=== PATIENT | male | born 1980 | race African-American/Black ===

== ENCOUNTER 2017-07-16 10:37 | Emergency (ER) | payer OTHER ==
[2017-07-16 10:48] VITALS: BP 107/65; PULSE 50; BMI 27.3
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
== END 2017-07-16 12:09 | disposition home or self-care (01) ==
LOC: JERFT 10:37 → JER 10:37
DX: T59.811A Toxic effect of smoke, accidental (unintentional), initial encounter (principal); J70.5 Respiratory conditions due to smoke inhalation; Y92.811 Bus as the place of occurrence of the external cause
CPT/HCPCS: 99281-25

== ENCOUNTER 2018-11-21 08:15 | Emergency (ER) | payer OTHER ==
--- NOTE | 2018-11-21 08:31 | PDOC ---
Attending Attestation - Resident Resident Name: Kirk Banks - HPI HPI: 11/21/18 08:53 Pt presents to the ED after sent in from [place] for seizure. Patient is non verbal at baseline, with bilateral contractions of his legs and arms. He has a known history of seizure disorder. Patient is somewhat more lethargic than his baseline as per aide who is with the patient. 11/21/18 08:55 - Physicial Exam PE: 11/21/18 08:55 Agree with resident exam. Patient appears to be sleeping, but withdraws to pain. + scattered rhonchi bilaterally. 11/21/18 08:56 - Medical Decision Making 11/21/18 08:57 Pt presents to the ED for witnessed seizure without history of trauma. Known history of seizure disorder. Will check depakote level, labs and electrolytes, reassess. Patient had slightly low rectal temp, but temp was taken immediately after coming in from [facility]. No other indications of sepsis. Will check labs and reassess temperature.
[2018-11-21] MEDS ORDERED: ACETAMINOPHEN 1000 MG/100 ML VIAL (NON FORMULARY) IVPB ONE (08:36)
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
[2018-11-21 08:50] VITALS: BP 137/97; PULSE 67; BMI 28.3
[2018-11-21] MEDS ORDERED: ACETAMINOPHEN INJECTION 100 ML IVPB ONE (09:00)
[2018-11-21 09:31] LABS: BASO % 0.3 % (0-2.0); EOS % 0.3 % (0-4.5); HEMATOCRIT 44.6 % (35.4-49); HEMOGLOBIN 15.3 GM/dL (11.7-16.9); LYMPH % 15.8 % (8-40); MCH 29.2 pg (25.7-33.7); MCHC 34.3 g/dl (32.0-35.9); MEAN CELL VOLUME 85.3 fl (80-96); MEAN PLT VOLUME 8.5 fl (7.5-11.1); MONO % 5.6 % (3.8-10.2); PLATELET COUNT 217 K/MM3 (134-434); RBC 5.24 M/mm3 (4.00-5.60); RDW 14.3 % (11.9-15.9); VENOUS PH 7.3 (7.32-7.42); WHITE BLOOD COUNT 7.1 K/mm3 (4.0-10.0)
[2018-11-21 09:32] LABS: VENOUS PO2 71.2 mmHg (28-48)
[2018-11-21 09:38] LABS: URINE APPEARANCE CLEAR; URINE BILIRUBIN NEGATIVE (<2.0 mg/dL); URINE COLOR YELLOW; URINE GLUCOSE (UA) NEGATIVE (NEGATIVE); URINE KETONE NEGATIVE (NEGATIVE); URINE LEUK ESTERASE NEGATIVE (NEGATIVE); URINE NITRITE NEGATIVE (NEGATIVE); URINE PROTEIN NEGATIVE (NEGATIVE); URINE UROBILINOGEN NEGATIVE mg/dL (0.2-1.0)
[2018-11-21 09:54] LABS: INR 0.97 (0.83-1.09); PROTHROMBIN TIME (PATIENT) 11.4 SEC (9.7-13.0)
[2018-11-21 09:57] LABS: ACTIVATED PTT 28.3 SECONDS (25.2-36.5)
[2018-11-21 10:00] LABS: ALK PHOS 87 U/L (45-117); ANION GAP 8 MMOL/L (8-16); BILIRUBIN,TOTAL 0.2 mg/dL (0.2-1); BLOOD UREA NITROGEN 11 mg/dL (7-18); CALCIUM 9.7 mg/dL (8.5-10.1); CHLORIDE 100 mmol/L (98-107); CO2 29 mmol/L (21-32); CREATININE 0.9 mg/dL (0.55-1.3); GLUCOSE,RANDOM 85 mg/dL (74-106); POTASSIUM 4.8 mmol/L (3.5-5.1); SGOT/AST 42 U/L (15-37); SGPT/ALT 53 U/L (13-61); SODIUM 137 mmol/L (136-145); TOT PROT 8.2 g/dl (6.4-8.2)
[2018-11-21] MEDS ORDERED: SODIUM CHLORIDE 0.9% 1000 ML INFUS.BAG IV ONE (10:52)
[2018-11-21 11:08] VITALS: TEMP 97.4
[2018-11-21] MEDS ORDERED: VALPROATE SODIUM 500 MG/5 ML VIAL IVPB ONE (12:31)
[2018-11-21] MEDS ORDERED: VALPROATE SODIUM 500 MG/5 ML VIAL ONE (13:21)
--- NOTE | 2018-11-21 14:36 | EKG ---
Test Reason : Blood Pressure : / mmHG Vent. Rate : 068 BPM Atrial Rate : 068 BPM P-R Int : 110 ms QRS Dur : 092 ms QT Int : 368 ms P-R-T Axes : 047 -21 029 degrees QTc Int : 391 ms SINUS RHYTHM WITH SINUS ARRHYTHMIA WITH SHORT ND INCOMPLETE RIGHT BUNDLE BRANCH BLOCK BORDERLINE ECG NO PREVIOUS ECGS AVAILABLE Confirmed by BECKY JOLLY MD ([id number]) on 11/21/2018 2:35:47 PM Referred By: Confirmed By:BECKY JOLLY MD
== END 2018-11-21 15:06 | disposition home or self-care (01) ==
LOC: JER 08:15
PROC: 3E033NZ Introduction of Analgesics, Hypnotics, Sedatives into Peripheral Vein, Percutaneous Approach (ICD-10-PCS; principal; 2018-11-21)
PROC: 3E033GC Introduction of Other Therapeutic Substance into Peripheral Vein, Percutaneous Approach (ICD-10-PCS; 2018-11-21)
DX: G40.909 Epilepsy, unspecified, not intractable, without status epilepticus (principal); G80.1 Spastic diplegic cerebral palsy; F73 Profound intellectual disabilities; H54.8 Legal blindness, as defined in USA; M95.10 Cauliflower ear, unspecified ear
CPT/HCPCS: 36415; 71045-TC-FY; 80053; 80164; 81003; 82803; 83605; 84484; 85025; 85610; 85730; 87040; 87086; 87186; 93005; 93010; 99282-25; J0131; J7030

== ENCOUNTER 2018-12-21 06:03 | Inpatient (IN) | payer OTHER ==
[2018-12-21] MEDS ORDERED: LORazepam 2 MG/ML SDV VIAL ONE ×2 (06:11→07:56)
--- NOTE | 2018-12-21 06:40 | PDOC ---
History of Present Illness - General Stated Complaint: SEIZURE Time Seen by Provider: 12/21/18 06:14 History Source: EMS, Shelter Records Exam Limitations: Clinical Condition - History of Present Illness Initial Comments: 12/21/18 06:40 Patient is a 38M from [place] with history of congenital diplegia, CP, MR, seizures here today with seizure. EMS reports that the patient had a seizure prior to their arrival, then they witnessed a seizure in the field. Both seizures lasted for about a minute. Fingerstick was 126. Given 5 versed IV in the field, resolved symptoms. Patient takes benzos and valproate for seizures. No other history available. Past History - Past Medical History Allergies/Adverse Reactions: Allergies Allergy/AdvReac Type Severity Reaction Status Date / Time No Known Allergies Allergy Verified 12/21/18 06:41 Home Medications: Ambulatory Orders Cetirizine HCl [Zyrtec -] 10 mg PO HS 11/21/18 Clonazepam 0.5 mg PO TID 11/21/18 Emollient Combination No.92 [Lubriderm Daily Moisture] 177 ml TP DAILY 11/21/18 Lorazepam [Ativan] 1 mg PO DAILY 11/21/18 Multivitamin [Poly-Vitamin] 1 each PO DAILY 11/21/18 Olanzapine [Zyprexa] 7.5 mg PO DAILY 11/21/18 Simethicone [Gas Relief] 40 mg PO TID 11/21/18 Valproic Acid [Depakene] 500 mg PO DAILY 11/21/18 COPD: No CHF: No DVT: No (profound mental retardation,) Psychiatric Problems: Yes (agiation, aggresive behavior.) Seizures: Yes (epilepsy.) - Immunization History Td Vaccination: Yes TDAP Vaccination: Yes Immunization Up to Date: Yes - Suicide/Smoking/Psychosocial Hx Smoking Status: No (profound MR) Smoking History: Never smoked Years of Tobacco Use: 0 Have you smoked in the past 12 months: No Number of Cigarettes Smoked Daily: 0 Cigars Per Day: 0 Hx Alcohol Use: No Drug/Substance Use Hx: No Review of Systems - Review of Systems Able to Perform ROS?: No (2/2 clinical condition) *Physical Exam - Vital Signs Last Vital Signs Temp Pulse Resp BP Pulse Ox 96.7 F L 12/21/18 06:31 - Physical Exam Comments: 12/21/18 06:42 GENERAL: Sonorous, no response to verbal stimuli HEAD: No signs of trauma EYES: No appreciable pupils or eye movement, sclera anicteric, conjunctiva clear ENT: Auricles normal inspection, hearing grossly normal, nares patent, Moist mucosa NECK: Contracted neck, no JVD LUNGS: No distress, clear to auscultation bilaterally HEART: Tachycardic, regular, normal S1 and S2, no murmurs, rubs or gallops, peripheral pulses normal and equal bilaterally. ABDOMEN: Soft, nontender, normoactive bowel sounds. No guarding, no rebound. No masses EXTREMITIES: Contractures in all extremities NEUROLOGICAL: Contracted, moving all extremities SKIN: Warm, Dry, normal turgor, no rashes or lesions noted. Moderate Sedation - Procedure Monitoring Vital Signs: Procedure Monitoring Vital Signs Temperature 96.7 F L 12/21/18 06:31 Pulse Rate Respiratory Rate Blood Pressure O2 Sat by Pulse Oximetry (%) ED Treatment Course - LABORATORY CBC & Chemistry Diagram: 12/21/18 06:25 12/21/18 06:25 - RADIOLOGY Radiology Studies Ordered: Category Date Time Status HEAD CT WITHOUT CONTRAST [CT] Stat CT Scan 12/21/18 06:15 Ordered CHEST X-RAY PORTABLE* [RAD] Stat Radiology 12/21/18 06:14 Ordered - Medications Given in the ED: ED Medications Discontinued Medications Generic Name Dose Route Start Last Admin Trade Name Freq PRN Reason Stop Dose Admin Lorazepam 2 mg 12/21/18 06:16 12/21/18 06:24 Ativan Injection - IVPUSH 12/21/18 06:17 2 mg ONCE ONE Administration Medical Decision Making - Medical Decision Making 12/21/18 06:44 Patient is 38M with history of Patient is a 38M from [place] with history of congenital diplegia, CP, MR, seizures here today with seizure. While being triaged, patient had third seizure. Given 2 ativan, which broke seizure activity. Difficult to assess if patient returned to baseline given baseline mental status. BP stable, airway being protected, tachycardic, temp 96.7. Broad workup initiated, fluids started. Will evaluate for infectious cause. Patient to be signed out to day team. *DC/Admit/Observation/Transfer Diagnosis at time of Disposition: Seizure - Discharge Dispostion Condition at time of disposition: Stable - Referrals - Patient Instructions - Post Discharge Activity
[2018-12-21 06:55] LABS: BASO % 0.3 % (0-2.0); EOS % 0.3 % (0-4.5); HEMATOCRIT 46.5 % (35.4-49); HEMOGLOBIN 15.8 GM/dL (11.7-16.9); LYMPH % 16.3 % (8-40); MCH 29.3 pg (25.7-33.7); MCHC 34.1 g/dl (32.0-35.9); MEAN CELL VOLUME 86.1 fl (80-96); MEAN PLT VOLUME 9.1 fl (7.5-11.1); MONO % 9.1 % (3.8-10.2); PLATELET COUNT 199 K/MM3 (134-434); RBC 5.39 M/mm3 (4.00-5.60); WHITE BLOOD COUNT 14.7 K/mm3 (4.0-10.0)
[2018-12-21] MEDS ORDERED: levETIRAcetam 500 MG/5 ML INJECTION VIAL IVPB ONE ×2 (07:00→07:56)
[2018-12-21 07:29] LABS: ALBUMIN 4.2 g/dl (3.4-5.0); ALK PHOS 93 U/L (45-117); ANION GAP 10 MMOL/L (8-16); BILIRUBIN,TOTAL 0.4 mg/dL (0.2-1); BLOOD UREA NITROGEN 13 mg/dL (7-18); CHLORIDE 100 mmol/L (98-107); CO2 27 mmol/L (21-32); GLUCOSE,RANDOM 149 mg/dL (74-106); POTASSIUM 3.5 mmol/L (3.5-5.1); SGOT/AST 43 U/L (15-37); SGPT/ALT 59 U/L (13-61); SODIUM 137 mmol/L (136-145)
--- NOTE | 2018-12-21 07:30 | PDOC ---
*Physical Exam - Vital Signs Last Vital Signs Temp Pulse Resp BP Pulse Ox 96.7 F L 102 H 18 129/93 98 12/21/18 06:35 12/21/18 06:35 12/21/18 06:35 12/21/18 06:35 12/21/18 06:35 ED Treatment Course - LABORATORY CBC & Chemistry Diagram: 12/21/18 06:25 12/21/18 06:25 - ADDITIONAL ORDERS Additional order review: Laboratory Results 12/21/18 06:32 Valproic Acid 15.6 L 12/21/18 06:25 RBC 5.39 MCV 86.1 MCHC 34.1 RDW 14.0 MPV 9.1 Neutrophils % 74.0 Lymphocytes % 16.3 Monocytes % 9.1 Eosinophils % 0.3 Basophils % 0.3 - Medications Given in the ED: ED Medications Discontinued Medications Generic Name Dose Route Start Last Admin Trade Name Freq PRN Reason Stop Dose Admin Lorazepam 2 mg 12/21/18 06:16 12/21/18 06:24 Ativan Injection - IVPUSH 12/21/18 06:17 2 mg ONCE ONE Administration Medical Decision Making - Medical Decision Making 12/21/18 07:00 Received sign out from resident Dr. Bill. In short, pt is a 38 y/ o male presenting from [place] for multiple seizures in setting of known seizure disorder. Managed with valproic acid with benzo abortive therapy. Found to be hypothermic and tachycardic on arrival. Will follow up on pending labs. Anticipate admission. Pt's Valproic Acid was found to be subtheraputic. Suspect this is the reason for the seizures. Pt has already received a loading dose of Keppra. Will hold Valproic Acid and defer medication adjustment to medicine team. 12/21/18 08:55 Telephone page sent for Dr. Machado through answering service. Awaiting call back. 12/21/18 08:[address] Machado. Verbally appraised of the pts HPI, ED course, and current plan of management. Requested neurology consult with Dr. Ferrer. 12/21/18 09:08 Telephone page alerting to consult sent to physician covering for Dr. Ferrer. Pt was erroneously admitted to Dr. Machado's service. When alerted, pt was re- admitted to Dr. Poon, [facility] Admitting. *DC/Admit/Observation/Transfer Diagnosis at time of Disposition: Seizure, Abnormal level of other drugs, medicaments and biological substances in specimens from other organs, systems and tissues - Discharge Dispostion Condition at time of disposition: Stable Decision to Admit order: Yes - Referrals - Patient Instructions - Post Discharge Activity
--- NOTE | 2018-12-21 07:43 | PDOC ---
Attending Attestation - Resident Resident Name: ScottbrianRonnell - ED Attending Attestation I have performed the following: I have examined & evaluated the patient, The case was reviewed & discussed with the resident, I agree w/resident's findings & plan, Exceptions are as noted - HPI HPI: 12/21/18 07:24 38M CP, MR, seizure d/o on VPA and keppra, presenting to ED in status epilepticus. Per EMS, pt had two witnessed seizures prior to arrival. He was given 5 mg versed IV in the field. However, in ED, pt had another witnessed GTC seizure. Pt was given ativen 2mg IV with subsequent resolution. Pt is nonverbal at baseline, cannot contribute any history. No NH report available at this time. - Physicial Exam PE: 12/21/18 07:43 Agree with resident exam - Critical Care Time Total Critical Care Time: 60 Critical Care Statement: The care of this patient involved high complexity decision making to prevent further life threatening deterioration of the patient 's condition and/or to evaluate & treat vital organ system(s) failure or risk of failure. - Medical Decision Making 12/21/18 07:43 38 M with CP, MR, presenting in status epilepticus. Seizures now controlled s/p benzos. Will load with Keppra as well. Pt afebrile here but will evaluate for infectious process. Also obtain head CT to r/o intracranial process. - Labs, cultures - CXR, UA - CT head - Keppra load - Benzos PRN
[2018-12-21 07:54] LABS: PROTHROMBIN TIME (PATIENT) 11.8 SEC (9.7-13.0)
[2018-12-21 07:56] LABS: ACTIVATED PTT 24.4 SECONDS (25.2-36.5)
[2018-12-21 08:57] LABS: URINE APPEARANCE CLEAR; URINE BILIRUBIN NEGATIVE (<2.0 mg/dL); URINE COLOR YELLOW; URINE GLUCOSE (UA) NEGATIVE (NEGATIVE); URINE KETONE NEGATIVE (NEGATIVE); URINE LEUK ESTERASE NEGATIVE (NEGATIVE); URINE NITRITE NEGATIVE (NEGATIVE); URINE PROTEIN 1+ (NEGATIVE); URINE UROBILINOGEN NEGATIVE mg/dL (0.2-1.0)
[2018-12-21 10:45] LABS: EPI CELLS RARE /HPF (FEW); URINE HYALINE CAST 3 /lpf; URINE MUCUS RARE
--- NOTE | 2018-12-21 11:34 | CONSULT ---
Consult - text type - Consultation Consultation Note: Neurology History of Present Illness: Patient is a 38M from [place] [facility] with history of congenital diplegia, CP, MR , seizures and presented ER with seizure today here today, day of admission. EMS reported that the patient had a seizure prior to their arrival, then they witnessed a seizure in the field. Both seizures lasted for about a minute. BGM fingerstick was 126. Patient was given 5 versed IV in the field, resolved symptoms. Patient takes benzodiazepines and valproate for seizures. No other history available. Seen at bedside in ER and no seizure like activity. Spoke to international account representative from [place] and reports last seizure approximately 1-2 mons ago. Discused with PCP and would benefit from increased dose of Depakene. Past History - Past Medical History Allergies/Adverse Reactions: Allergies Allergy/AdvReac Type Severity Reaction Status Date / Time No Known Allergies Allergy Verified 12/21/18 06:41 Home Medications: Ambulatory Orders Cetirizine HCl [Zyrtec -] 10 mg PO HS 11/21/18 Clonazepam 0.5 mg PO TID 11/21/18 Emollient Combination No.92 [Lubriderm Daily Moisture] 177 ml TP DAILY 11/21/18 Lorazepam [Ativan] 1 mg PO DAILY 11/21/18 Multivitamin [Poly-Vitamin] 1 each PO DAILY 11/21/18 Olanzapine [Zyprexa] 7.5 mg PO DAILY 11/21/18 Simethicone [Gas Relief] 40 mg PO TID 11/21/18 Valproic Acid [Depakene] 500 mg PO DAILY 11/21/18 COPD: No CHF: No DVT: No (profound mental retardation,) Psychiatric Problems: Yes (agiation, aggresive behavior.) Seizures: Yes (epilepsy.) - Immunization History Td Vaccination: Yes TDAP Vaccination: Yes Immunization Up to Date: Yes - Suicide/Smoking/Psychosocial Hx Smoking Status: No (profound MR) Smoking History: Never smoked Years of Tobacco Use: 0 Have you smoked in the past 12 months: No Number of Cigarettes Smoked Daily: 0 Cigars Per Day: 0 Hx Alcohol Use: No Drug/Substance Use Hx: No Review of Systems - Review of Systems Able to Perform ROS?: No (2/2 clinical condition) *Physical Exam - Vital Signs Vital Signs Temperature 96.7 F L 12/21/18 06:35 Pulse Rate 105 H 12/21/18 08:30 Respiratory Rate 24 H 12/21/18 08:30 Blood Pressure 119/84 12/21/18 08:30 O2 Sat by Pulse Oximetry (%) 98 12/21/18 08:30 - Physical Exam GENERAL: Sonorous, no response to verbal stimuli HEAD: No signs of trauma EYES: No appreciable pupils or eye movement, sclera anicteric, conjunctiva clear ENT: Auricles normal inspection, hearing grossly normal, nares patent, Moist mucosa NECK: Contracted neck, no JVD LUNGS: No distress, clear to auscultation bilaterally HEART: Tachycardic, regular, normal S1 and S2, no murmurs, rubs or gallops, peripheral pulses normal and equal bilaterally. ABDOMEN: Soft, nontender, normoactive bowel sounds. No guarding, no rebound. No masses EXTREMITIES: Contractures in all extremities NEUROLOGICAL: Contracted, moving all extremities SKIN: Warm, Dry, normal turgor, no rashes or lesions noted. CBCD WBC 14.7 K/mm3 (4.0-10.0) H 12/21/18 06:25 RBC 5.39 M/mm3 (4.00-5.60) 12/21/18 06:25 Hgb 15.8 GM/dL (11.7-16.9) 12/21/18 06:25 Hct 46.5 % (35.4-49) 12/21/18 06:25 MCV 86.1 fl (80-96) 12/21/18 06:25 MCHC 34.1 g/dl (32.0-35.9) 12/21/18 06:25 RDW 14.0 % (11.9-15.9) 12/21/18 06:25 Plt Count 199 K/MM3 (134-434) 12/21/18 06:25 MPV 9.1 fl (7.5-11.1) 12/21/18 06:25 CMP Sodium 137 mmol/L (136-145) 12/21/18 06:25 Potassium 3.5 mmol/L (3.5-5.1) 12/21/18 06:25 Chloride 100 mmol/L (98-107) 12/21/18 06:25 Carbon Dioxide 27 mmol/L (21-32) 12/21/18 06:25 Anion Gap 10 MMOL/L (8-16) 12/21/18 06:25 BUN 13 mg/dL (7-18) 12/21/18 06:25 Creatinine 1.0 mg/dL (0.55-1.3) 12/21/18 06:25 Creat Clearance w eGFR > 60 (>60) 12/21/18 06:25 Random Glucose 149 mg/dL (74-106) H 12/21/18 06:25 Calcium 9.0 mg/dL (8.5-10.1) 12/21/18 06:25 Total Bilirubin 0.4 mg/dL (0.2-1) 12/21/18 06:25 AST 43 U/L (15-37) H 12/21/18 06:25 ALT 59 U/L (13-61) 12/21/18 06:25 Alkaline Phosphatase 93 U/L (45-117) 12/21/18 06:25 Total Protein 8.0 g/dl (6.4-8.2) 12/21/18 06:25 Albumin 4.2 g/dl (3.4-5.0) 12/21/18 06:25 Diagnostics: Head CT - completed, reviewed Plan/Assessment: 38M from [facility] with history of congenital diplegia, CP, MR, seizures and presented ER with seizure today here today, day of admission. EMS reported that the patient had a seizure prior to their arrival, then they witnessed a seizure in the field. Both seizures lasted for about a minute. BGM fingerstick was 126. Patient was given 5 versed IV in the field, resolved symptoms. Patient takes benzodiazepines and valproate for seizures. No other history available. Seen at bedside in ER and no seizure like activity. Spoke to international account representative from [place] and reports last seizure approximately 1-2 mons ago. Discused with PCP and would benefit from increased dose of Depakene, will adjust to 750. Monitor for infectious etiologies, hydration recommended. Seizure precations, medication compliance. .
--- NOTE | 2018-12-21 12:55 | EKG ---
Test Reason : Blood Pressure : / mmHG Vent. Rate : 102 BPM Atrial Rate : 102 BPM P-R Int : 116 ms QRS Dur : 080 ms QT Int : 338 ms P-R-T Axes : 055 -32 052 degrees QTc Int : 440 ms SINUS TACHYCARDIA LEFT AXIS DEVIATION NONSPECIFIC ST AND T WAVE ABNORMALITY ABNORMAL ECG WHEN COMPARED WITH ECG OF 21-NOV-2018 10:25, VENT. RATE HAS INCREASED BY 34 BPM Confirmed by DEBORAH VAZQUEZ MD ([id number]) on 12/21/2018 12:55:00 PM Referred By: Confirmed By:DEBORAH VAZQUEZ MD
[2018-12-21] MEDS ORDERED: AZITHROMYCIN IVPB 500 MG in DEXTROSE 5%-WATER - 250 ML IVPB SCH (15:30)
[2018-12-21] MEDS ORDERED: OLANZapine 7.5 MG TABLET PO SCH (15:30)
--- NOTE | 2018-12-21 15:45 | HP ---
CHIEF COMPLAINT: seizure activity in resident facility PCP:maryanne HISTORY OF PRESENT ILLNESS: Patient is a 38M from [facility] with history of congenital diplegia, CP, Mental retardation, seizures today He presented ER with seizure ,EMS reported that the patient had a seizure prior to their arrival, then they witnessed a seizure in the field. Both seizures lasted for about a minute. BGM fingerstick was 126. Patient was given 5 versed IV in the field, resolved symptoms. Later in er he received more ativan.Patient takes benzodiazepines and valproate for seizures. No other history available. Seen at bedside in ER and no seizure like activity. Spoke to traveling sales representative from [place] and reports last seizure approximately 1-2 mons ago. He was in er in November and has normal wbc count ER course was notable for: (1)seizure (2)elevated wbc count (3)seizure free since in ER Recent Travel:no PAST MEDICAL HISTORY: seizure disorder , blindness mental retardation Diplegia congenital wheelchair bound PAST SURGICAL HISTORY: Social History: Smoking: Alcohol: Drugs: Family History: Allergies No Known Allergies Allergy (Verified 12/21/18 06:41) HOME MEDICATIONS: Home Medications Medication Instructions Recorded Cetirizine HCl [Zyrtec -] 10 mg PO HS 11/21/18 Clonazepam 0.5 mg PO TID 11/21/18 Emollient Combination No.92 177 ml TP DAILY 11/21/18 [Lubriderm Daily Moisture] Lorazepam [Ativan] 1 mg PO DAILY 11/21/18 Multivitamin [Poly-Vitamin] 1 each PO DAILY 11/21/18 Olanzapine [Zyprexa] 7.5 mg PO DAILY 11/21/18 Simethicone [Gas Relief] 40 mg PO TID 11/21/18 Valproic Acid [Depakene] 500 mg PO DAILY 11/21/18 REVIEW OF SYSTEMS CONSTITUTIONAL: Absent: fever, chills, HEENT: Absent: rhinorrhea, nasal congestion, throat pain, throat swelling, difficulty swallowing, mouth swelling, ear pain, eye pain, visual changes CARDIOVASCULAR: Absent: chest pain, syncope, palpitations, irregular heart rate, lightheadedness , peripheral edema RESPIRATORY: Absent: cough, shortness of breath, dyspnea with exertion, orthopnea, wheezing, stridor, hemoptysis GASTROINTESTINAL: Absent: abdominal pain, abdominal distension, nausea, vomiting, diarrhea, constipation, melena, hematochezia GENITOURINARY: Absent: dysuria, frequency, urgency, hesitancy, hematuria, flank pain, genital pain MUSCULOSKELETAL: Absent: myalgia, arthralgia, joint swelling, back pain, neck pain SKIN: Absent: rash, itching, pallor HEMATOLOGIC/IMMUNOLOGIC: Absent: easy bleeding, easy bruising, lymphadenopathy, frequent infections ENDOCRINE: Absent: unexplained weight gain, unexplained weight loss, heat intolerance, cold intolerance NEUROLOGIC: seizures PSYCHIATRIC: on multiple psych meds PHYSICAL EXAMINATION Vital Signs - 24 hr 12/21/18 12/21/18 12/21/18 06:31 06:35 08:30 Temperature 96.7 F L 96.7 F L Pulse Rate 102 H Pulse Rate [ 105 H Apical] Respiratory 18 24 H Rate Blood Pressure 129/93 Blood Pressure 119/84 [Right Arm] O2 Sat by Pulse 98 98 Oximetry (%) 12/21/18 15:05 Temperature Pulse Rate Pulse Rate [ 88 Apical] Respiratory 25 H Rate Blood Pressure Blood Pressure 101/66 [Right Arm] O2 Sat by Pulse 98 Oximetry (%) GENERAL: Awake, HEAD: Normal with no signs of trauma. EYES: blind eyes EARS, NOSE, THROAT: Ears normal, nares patent, oropharynx clear without exudates. Moist mucous membranes. NECK: Normal range of motion, supple without lymphadenopathy, JVD, or masses. LUNGS: crackles both lungs HEART: Regular rate and rhythm, normal S1 and S2 without murmur, rub or gallop. ABDOMEN: Soft, nontender, not distended, normoactive bowel sounds, no guarding, no rebound, no masses. No hepatomegaly or splenomegaly. MUSCULOSKELETAL:contractures in his legs UPPER EXTREMITIES: 2+ pulses, warm, well-perfused. No cyanosis. No clubbing. No peripheral edema. LOWER EXTREMITIES: 2+ pulses, warm, well-perfused. No calf tenderness. No peripheral edema. NEUROLOGICAL: lethargic but moving all extremities SKIN: Warm, dry, normal turgor, no rashes or lesions noted, normal capillary refill. Laboratory Results - last 24 hr 12/21/18 12/21/18 12/21/18 06:25 06:25 06:25 WBC 14.7 H RBC 5.39 Hgb 15.8 Hct 46.5 MCV 86.1 MCH 29.3 MCHC 34.1 RDW 14.0 Plt Count 199 MPV 9.1 Absolute Neuts (auto) 10.9 H Neutrophils % 74.0 Lymphocytes % 16.3 Monocytes % 9.1 Eosinophils % 0.3 Basophils % 0.3 Nucleated RBC % 0 ESR PT with INR 11.80 INR 1.00 PTT (Actin FS) 24.4 L Sodium 137 Potassium 3.5 Chloride 100 Carbon Dioxide 27 Anion Gap 10 BUN 13 Creatinine 1.0 Creat Clearance w eGFR > 60 Random Glucose 149 H Lactic Acid Calcium 9.0 Total Bilirubin 0.4 AST 43 H ALT 59 Alkaline Phosphatase 93 Troponin I < 0.02 Total Protein 8.0 Albumin 4.2 Urine Color Urine Appearance Urine pH Ur Specific [place] Urine Protein Urine Glucose (UA) Urine Ketones Urine Blood Urine Nitrite Urine Bilirubin Urine Urobilinogen Ur Leukocyte Esterase Urine WBC (Auto) Urine RBC (Auto) Ur Epithelial Cells Hyaline Casts Urine Mucus Valproic Acid 12/21/18 12/21/18 12/21/18 06:25 06:32 06:34 WBC RBC Hgb Hct MCV MCH MCHC RDW Plt Count MPV Absolute Neuts (auto) Neutrophils % Lymphocytes % Monocytes % Eosinophils % Basophils % Nucleated RBC % ESR 2 PT with INR INR PTT (Actin FS) Sodium Potassium Chloride Carbon Dioxide Anion Gap BUN Creatinine Creat Clearance w eGFR Random Glucose Lactic Acid 1.8 Calcium Total Bilirubin AST ALT Alkaline Phosphatase Troponin I Total Protein Albumin Urine Color Urine Appearance Urine pH Ur Specific [place] Urine Protein Urine Glucose (UA) Urine Ketones Urine Blood Urine Nitrite Urine Bilirubin Urine Urobilinogen Ur Leukocyte Esterase Urine WBC (Auto) Urine RBC (Auto) Ur Epithelial Cells Hyaline Casts Urine Mucus Valproic Acid 15.6 L 12/21/18 08:38 WBC RBC Hgb Hct MCV MCH MCHC RDW Plt Count MPV Absolute Neuts (auto) Neutrophils % Lymphocytes % Monocytes % Eosinophils % Basophils % Nucleated RBC % ESR PT with INR INR PTT (Actin FS) Sodium Potassium Chloride Carbon Dioxide Anion Gap BUN Creatinine Creat Clearance w eGFR Random Glucose Lactic Acid Calcium Total Bilirubin AST ALT Alkaline Phosphatase Troponin I Total Protein Albumin Urine Color Yellow Urine Appearance Clear Urine pH 6.0 Ur Specific [place] 1.021 Urine Protein 1+ H Urine Glucose (UA) Negative Urine Ketones Negative Urine Blood Negative Urine Nitrite Negative Urine Bilirubin Negative Urine Urobilinogen Negative Ur Leukocyte Esterase Negative Urine WBC (Auto) 3 Urine RBC (Auto) 2 Ur Epithelial Cells Rare Hyaline Casts 3 Urine Mucus Rare Valproic Acid ASSESSMENT/PLAN: Patient is a 38M from [facility] with history of congenital diplegia, CP, MR , seizures and presented ER with seizure today here today with elevated wbc count and pneumonia on cxr 1 uncontrolled seizure He recieved loading dose of keppra and seen by neuro and recomended that to inc valporic acid to [address] head is no acute stroke 2 dehydration Start fluids iv d5/half 3 pneumonia His x rays shows possible pneumonia with wbc count elevated will start on iv rocephin and zithromax will repeat labs am 4 mental retardation damian continue his usual care medications Current Medications Generic Name Dose Route Start Last Admin Trade Name Freq PRN Reason Stop Dose Admin Ceftriaxone Sodium 1 gm/ 100 mls @ 200 mls/hr 12/21/18 15:30 Dextrose IVPB DAILY JAIRO Protocol Azithromycin 500 mg/ Dextrose 250 mls @ 250 mls/hr 12/21/18 15:30 IVPB DAILY JAIRO Dextrose/Sodium Chloride 1,000 mls @ 83 mls/hr 12/21/18 15:30 D5-1/2ns - IV ASDIR JAIRO Lorazepam 1 mg 12/22/18 10:00 Ativan - PO DAILY JAIRO Non-Formulary Medication 10 mg 12/21/18 22:00 Cetirizine Hcl PO HS JAIRO Non-Formulary Medication 0.5 mg 12/21/18 22:00 Clonazepam [Clonazepam] PO TID JAIRO Non-Formulary Medication 177 ml 12/22/18 10:00 Emollient Combination No.92 [Lubriderm Daily Moisture] TP DAILY JAIRO Non-Formulary Medication 1 each 12/22/18 10:00 Multivitamin [Poly-Vitamin] PO DAILY JAIRO Olanzapine 7.5 mg 12/21/18 15:30 Zyprexa - PO DAILY JAIRO Simethicone 40 mg 12/21/18 22:00 Mylicon Liquid - PO TID JAIRO Valproate Sodium 750 mg 12/21/18 22:00 Depakene - PO BID JAIRO Visit type - Emergency Visit Emergency Visit: Yes ED Registration Date: 12/21/18 Care time: The patient presented to the Emergency Department on the above date and was hospitalized for further evaluation of their emergent condition. - New Patient This patient is new to me today: Yes Date on this admission: 12/21/18 - Critical Care Critical Care patient: No
[2018-12-21] MEDS ORDERED: CEFTRIAXONE 1 GM in DEXTROSE 5%-WATER - 50 ML IVPB SCH (17:00)
[2018-12-21] MEDS ORDERED: cefTRIAXone SODIUM 1 GM VIAL ONE (17:09)
[2018-12-21] MEDS ORDERED: DEXTROSE 5%-WATER - 50 ML IVPB ONE ×2 (17:10→19:49)
[2018-12-21] MEDS: DEXTROSE 5%-0.45% SALINE 1,000 ML IV SCH (17:15)
[2018-12-21 18:01] VITALS: BMI 22.2
[2018-12-21] MEDS: OLANZAPINE 5 MG, OLANZAPINE 2.5 MG PO SCH (18:24)
[2018-12-21] MEDS: AZITHROMYCIN IVPB 500 MG/250 ML D5W PRE-DOCKED IVPB SCH (18:24)
[2018-12-21] MEDS ORDERED: PIPERACILLIN/TAZOBACTAM 3.375 GM VIAL IVPB ONE (19:48)
[2018-12-21] MEDS: PIPERACILLIN/TAZOB 3.375 GM 3.375 GM in DEXTROSE 5%-WATER - 50 ML IVPB SCH (20:15)
[2018-12-21] MEDS ORDERED: PIPERACILLIN/TAZOB 3.375 GM 3.375 GM in DEXTROSE 5%-WATER - 50 ML IVPB SCH (20:30)
[2018-12-21] MEDS ORDERED: clonazePAM 0.5 MG TABLET PO PRN (22:00)
[2018-12-21] MEDS: SIMETHICONE 80 MG TAB.CHEW (FP) PO SCH (22:21)
[2018-12-21] MEDS: LORATADINE 10 MG TABLET PO SCH (22:21)
[2018-12-21] MEDS: VALPROATE SODIUM 250 MG/5 ML UNIT DOSE CUP PO SCH (22:22)
[2018-12-22] MEDS ORDERED: PIPERACILLIN/TAZOBACTAM 3.375 GM VIAL IVPB ONE ×3 (01:52→20:41)
[2018-12-22] MEDS ORDERED: DEXTROSE 5%-WATER - 50 ML IVPB ONE ×2 (01:52→09:02)
[2018-12-22] MEDS: PIPERACILLIN/TAZOB 3.375 GM 3.375 GM in DEXTROSE 5%-WATER - 50 ML IVPB SCH ×3 (01:57→21:00)
[2018-12-22] MEDS: SIMETHICONE 80 MG TAB.CHEW (FP) PO SCH ×3 (06:19→22:15)
[2018-12-22] MEDS: LORazepam 1 MG TABLET PO SCH (09:14)
[2018-12-22] MEDS: OLANZAPINE 5 MG, OLANZAPINE 2.5 MG PO SCH (09:15)
[2018-12-22] MEDS: MULTIVITAMINS (DAILY MVI) TABLET (FP) PO SCH (09:15)
[2018-12-22] MEDS: VALPROATE SODIUM 250 MG/5 ML UNIT DOSE CUP PO SCH (09:15)
[2018-12-22] MEDS: MINERAL OIL/PETROLAT/WATER TOPICAL CREAM 113 GM JAR TP SCH (10:43)
[2018-12-22] MEDS: AZITHROMYCIN IVPB 500 MG/250 ML D5W PRE-DOCKED IVPB SCH (10:44)
--- NOTE | 2018-12-22 11:07 | PN ---
Progress Note (short form) - Note Progress Note: Neurology History of Present Illness: Patient is a 38M from [facility] with history of congenital diplegia, CP, MR , seizures and presented ER with multiple seizures on day of admission. EMS reported that the patient had a seizure prior to their arrival, then they witnessed a seizure in the field. Both seizures lasted for about a minute. BGM fingerstick was 126. Patient was given 5 versed IV in the field, resolved symptoms. Patient takes benzodiazepines and valproate for seizures. No other history available. Seen at bedside in ER and no seizure like activity. Spoke to printing sales representative from [place] and reports last seizure approximately 1-2 mons ago. Discussed with PCP and would benefit from increased dose of Depakene. Repeat Head CT completed on 12/22/18, no acute changes noted. No seizures overnight, discussed with FRONT DESK CLERK at bedside of adjustment of depekene so staff can be aware. Neurologically remains stable this AM. Allergies/Adverse Reactions: Allergies Allergy/AdvReac Type Severity Reaction Status Date / Time No Known Allergies Allergy Verified 12/21/18 06:41 Active Medications Azithromycin (Zithromax 500mg Ivpb (Pre-Docked)) 500 mg IVPB DAILY JAIRO Last Admin: 12/22/18 10:44 Dose: 500 mg Clonazepam (Klonopin -) 0.5 mg PO Q8H PRN PRN Reason: SEIZURES Dextrose/Sodium Chloride (D5-1/2ns -) 1,000 mls @ 83 mls/hr IV ASDIR JAIRO Last Admin: 12/21/18 17:15 Dose: 83 mls/hr Piperacillin Sod/Tazobactam (Sod 3.375 gm/ Dextrose) 50 mls @ 100 mls/hr IVPB Q8H-IV JAIRO; Protocol Loratadine (Claritin -) 10 mg PO HS JAIRO Last Admin: 12/21/18 22:21 Dose: 10 mg Lorazepam (Ativan -) 1 mg PO DAILY JAIRO Last Admin: 12/22/18 09:14 Dose: Not Given Multi-Ingredient Lotion (Eucerin (Small Jar) -) 1 applic TP DAILY JAIRO Last Admin: 12/22/18 10:43 Dose: 1 applic Multivitamins/Minerals/Vitamin C (Tab-A-Vit -) 1 tab PO DAILY JAIRO Last Admin: 12/22/18 09:15 Dose: Not Given Olanzapine 5 mg/ Olanzapine 2. (5 mg) 7.5 mg PO DAILY [facility] Last Admin: 12/22/18 09:15 Dose: Not Given Simethicone (Mylicon -) 80 mg PO TID [facility] Last Admin: 12/22/18 06:19 Dose: Not Given Valproate Sodium (Depakene -) 750 mg PO BID [facility] Last Admin: 12/22/18 09:15 Dose: Not Given *Physical Exam - Vital Signs Vital Signs Temperature 98.3 F 12/22/18 06:00 Pulse Rate 110 H 12/22/18 06:00 Respiratory Rate 18 12/22/18 06:00 Blood Pressure 110/63 12/22/18 06:00 O2 Sat by Pulse Oximetry (%) 97 12/21/18 21:00 - Physical Exam GENERAL: Sonorous, no response to verbal stimuli HEAD: No signs of trauma EYES: No appreciable pupils or eye movement, sclera anicteric, conjunctiva clear ENT: Auricles normal inspection, hearing grossly normal, nares patent, Moist mucosa NECK: Contracted neck, no JVD LUNGS: No distress, clear to auscultation bilaterally HEART: Tachycardic, regular, normal S1 and S2, no murmurs, rubs or gallops, peripheral pulses normal and equal bilaterally. ABDOMEN: Soft, nontender, normoactive bowel sounds. No guarding, no rebound. No masses EXTREMITIES: Contractures in all extremities NEUROLOGICAL: Contracted, moving all extremities SKIN: Warm, Dry, normal turgor, no rashes or lesions noted. CBCD WBC 14.7 K/mm3 (4.0-10.0) H 12/21/18 06:25 RBC 5.39 M/mm3 (4.00-5.60) 12/21/18 06:25 Hgb 15.8 GM/dL (11.7-16.9) 12/21/18 06:25 Hct 46.5 % (35.4-49) 12/21/18 06:25 MCV 86.1 fl (80-96) 12/21/18 06:25 MCHC 34.1 g/dl (32.0-35.9) 12/21/18 06:25 RDW 14.0 % (11.9-15.9) 12/21/18 06:25 Plt Count 199 K/MM3 (134-434) 12/21/18 06:25 MPV 9.1 fl (7.5-11.1) 12/21/18 06:25 CMP Sodium 137 mmol/L (136-145) 12/21/18 06:25 Potassium 3.5 mmol/L (3.5-5.1) 12/21/18 06:25 Chloride 100 mmol/L (98-107) 12/21/18 06:25 Carbon Dioxide 27 mmol/L (21-32) 12/21/18 06:25 Anion Gap 10 MMOL/L (8-16) 12/21/18 06:25 BUN 13 mg/dL (7-18) 12/21/18 06:25 Creatinine 1.0 mg/dL (0.55-1.3) 12/21/18 06:25 Creat Clearance w eGFR > 60 (>60) 12/21/18 06:25 Random Glucose 149 mg/dL (74-106) H 12/21/18 06:25 Calcium 9.0 mg/dL (8.5-10.1) 12/21/18 06:25 Total Bilirubin 0.4 mg/dL (0.2-1) 12/21/18 06:25 AST 43 U/L (15-37) H 12/21/18 06:25 ALT 59 U/L (13-61) 12/21/18 06:25 Alkaline Phosphatase 93 U/L (45-117) 12/21/18 06:25 Total Protein 8.0 g/dl (6.4-8.2) 12/21/18 06:25 Albumin 4.2 g/dl (3.4-5.0) 12/21/18 06:25 CARDIAC ENZYMES Troponin I < 0.02 ng/ml (0.00-0.05) 12/21/18 06:25 Diagnostics: Head CT - completed, reviewed Head CT (repeat) - completed Plan/Assessment: 38M from [facility] with history of congenital diplegia, CP, MR, seizures and presented ER with multiple seizures on day of admission. EMS reported that the patient had a seizure prior to their arrival, then they witnessed a seizure in the field. Both seizures lasted for about a minute. BGM fingerstick was 126. Patient was given 5 versed IV in the field, resolved symptoms. Patient takes benzodiazepines and valproate for seizures. No other history available. Seen at bedside in ER and no seizure like activity. Spoke to printing sales representative from [place] and reports last seizure approximately 1-2 mons ago. Discussed with PCP and would benefit from increased dose of Depakene, adjusted to 750. Monitor for infectious etiologies, hydration recommended. Seizure precations, medication compliance. Repeat head ct completed on 12/22/18, no changes noted. Remains on Zosyn, continue infectious mgmt as this can lower seizure threshold. Neurologically stable at this time.
[2018-12-22 12:39] LABS: BASO % 0.5 % (0-2.0); EOS % 0.3 % (0-4.5); HEMATOCRIT 37.5 % (35.4-49); LYMPH % 28.2 % (8-40); MCHC 34.5 g/dl (32.0-35.9); MEAN CELL VOLUME 86.9 fl (80-96); MONO % 11.8 % (3.8-10.2); NEUT % 59.2 % (42.8-82.8); PLATELET COUNT 156 K/MM3 (134-434); RBC 4.32 M/mm3 (4.00-5.60); WHITE BLOOD COUNT 6.3 K/mm3 (4.0-10.0)
[2018-12-22 12:59] LABS: ANION GAP 9 MMOL/L (8-16); BLOOD UREA NITROGEN 11 mg/dL (7-18); CALCIUM 8.3 mg/dL (8.5-10.1); CHLORIDE 100 mmol/L (98-107); CO2 27 mmol/L (21-32); CREATININE 0.8 mg/dL (0.55-1.3); GLUCOSE,RANDOM 188 mg/dL (74-106); POTASSIUM 3.5 mmol/L (3.5-5.1); SODIUM 136 mmol/L (136-145)
[2018-12-22] MEDS: DEXTROSE 5%-0.45% SALINE 1,000 ML IV SCH (14:00)
[2018-12-22] MEDS ORDERED: VALPROATE SODIUM 500 MG/5 ML VIAL IVPB ONE (15:15)
--- NOTE | 2018-12-22 15:17 | PN ---
Physical Exam: SUBJECTIVE: Patient seen and examined he is more sleepy today but no distress he hasnt received any more benzo since the ambulance dose pt is not eating well OBJECTIVE: Vital Signs Period Temp Pulse Resp BP Sys/Garcia Pulse Ox Last 24 Hr 98.3 F-98.7 F 80-111 17- 105-118/58-79 95-97 GENERAL: The patient is drowsy EYES: PERRL, extraocular movements intact, sclera anicteric, conjunctiva clear. No ptosis. ENT: Ears normal, nares patent, oropharynx clear without exudates, moist mucous membranes. NECK: Trachea midline, full range of motion, supple. LUNGS: Breath sounds equal, clear to auscultation bilaterally, no wheezes, no crackles, no accessory muscle use. HEART: Regular rate and rhythm, S1, S2 without murmur, rub or gallop. ABDOMEN: Soft, nontender, nondistended, normoactive bowel sounds, no guarding, no rebound, no hepatosplenomegaly, no masses. EXTREMITIES: 2+ pulses, warm, well-perfused, no edema. NEUROLOGICAL: drowsy and lethargic Laboratory Results - last 24 hr 12/22/18 12/22/18 11:40 11:40 WBC 6.3 RBC 4.32 Hgb 13.0 Hct 37.5 D MCV 86.9 MCH 30.0 MCHC 34.5 RDW 14.0 Plt Count 156 D MPV 9.0 Absolute Neuts (auto) 3.7 Neutrophils % 59.2 Lymphocytes % 28.2 D Monocytes % 11.8 H Eosinophils % 0.3 Basophils % 0.5 Nucleated RBC % 0 Sodium 136 Potassium 3.5 Chloride 100 Carbon Dioxide 27 Anion Gap 9 BUN 11 Creatinine 0.8 Creat Clearance w eGFR > 60 Random Glucose 188 H Calcium 8.3 L Active Medications Generic Name Dose Route Start Last Admin Trade Name Freq PRN Reason Stop Dose Admin Azithromycin 500 mg 12/21/18 17:00 12/22/18 10:44 Zithromax 500mg Ivpb (Pre-Docked) IVPB 500 mg DAILY JAIRO Administration Clonazepam 0.5 mg 12/21/18 22:00 Klonopin - PO Q8H PRN SEIZURES Dextrose/Sodium Chloride 1,000 mls @ 83 mls/hr 12/21/18 17:00 12/21/18 17:15 D5-1/2ns - IV 83 mls/hr ASDIR JAIRO Administration Piperacillin Sod/Tazobactam 50 mls @ 100 mls/hr 12/21/18 19:00 Sod 3.375 gm/ Dextrose IVPB Q8H-IV JAIRO Protocol Loratadine 10 mg 12/21/18 22:00 12/21/18 22:21 Claritin - PO 10 mg HS JAIRO Administration Lorazepam 1 mg 12/22/18 10:00 12/22/18 09:14 Ativan - PO Not Given DAILY JAIRO Multi-Ingredient Lotion 1 applic 12/22/18 10:00 12/22/18 10:43 Eucerin (Small Jar) - TP 1 applic DAILY JAIRO Administration Multivitamins/Minerals/Vitamin C 1 tab 12/22/18 10:00 12/22/18 09:15 Tab-A-Vit - PO Not Given DAILY JAIRO Olanzapine 5 mg/ Olanzapine 2. 7.5 mg 12/21/18 17:00 12/22/18 09:15 5 mg PO Not Given DAILY JAIRO Simethicone 80 mg 12/21/18 22:00 12/22/18 13:03 Mylicon - PO Not Given TID JAIRO Valproate Sodium 750 mg 12/22/18 22:00 Depacon Injection - IV BID JAIRO Valproate Sodium 750 mg 12/22/18 15:15 Depacon Injection - IVPB 12/22/18 15:16 ONCE ONE ASSESSMENT/PLAN: sepsis due to aspiration pneumonia his wbc count is better continue the zosyn will call id for consult due need for approval of abx Altered mental status repeat ct head is no change on stat order see by neuro and will watch and change his valporic to iv hold his benzos due to change his mental status Visit type - Emergency Visit Emergency Visit: Yes ED Registration Date: 12/21/18 Care time: The patient presented to the Emergency Department on the above date and was hospitalized for further evaluation of their emergent condition. - New Patient This patient is new to me today: No - Critical Care Critical Care patient: No - Discharge Referral Referred to [facility] Med P.C.: No
[2018-12-22] MEDS ORDERED: DEXTROSE 5%-WATER - 100 ML IVPB ONE (20:41)
[2018-12-22] MEDS ORDERED: PT OWN MED DRAWER 7, Y5N ONE (21:48)
[2018-12-22] MEDS: VALPROATE SODIUM 500 MG/5 ML VIAL IV SCH (22:05)
[2018-12-22] MEDS: LORATADINE 10 MG TABLET PO SCH (22:13)
[2018-12-23] MEDS ORDERED: DEXTROSE 5%-WATER - 50 ML IVPB ONE ×3 (01:27→17:09)
[2018-12-23] MEDS ORDERED: PIPERACILLIN/TAZOBACTAM 3.375 GM VIAL IVPB ONE ×3 (01:27→17:09)
[2018-12-23] MEDS: PIPERACILLIN/TAZOB 3.375 GM 3.375 GM in DEXTROSE 5%-WATER - 50 ML IVPB SCH ×3 (02:16→17:29)
[2018-12-23] MEDS: SIMETHICONE 80 MG TAB.CHEW (FP) PO SCH ×3 (06:31→22:30)
[2018-12-23] MEDS: AZITHROMYCIN IVPB 500 MG/250 ML D5W PRE-DOCKED IVPB SCH ×2 (09:34→11:05)
[2018-12-23] MEDS: VALPROATE SODIUM 500 MG/5 ML VIAL IV SCH ×2 (10:00→22:35)
[2018-12-23] MEDS: MINERAL OIL/PETROLAT/WATER TOPICAL CREAM 113 GM JAR TP SCH (10:48)
[2018-12-23] MEDS: OLANZAPINE 5 MG, OLANZAPINE 2.5 MG PO SCH (10:49)
[2018-12-23] MEDS: LORazepam 1 MG TABLET PO SCH (10:49)
[2018-12-23] MEDS: MULTIVITAMINS (DAILY MVI) TABLET (FP) PO SCH (10:49)
--- NOTE | 2018-12-23 12:19 | PN ---
Progress Note (short form) - Note Progress Note: ID consult dictated imp/reccd 38 yo man from [facility] with profound developmental disabilities, seizure disorder admitted with multiple seizures 12/21 valproaic acid level was low cxray with left basilar infiltrate no fevers now normal wbc has completed 48 hours of antibiotics iv can switch to po augmentin for another 5 days once he is taking po d/c zithromax ua is negative, doubt UTI Problem List - Problems (1) Seizure Code(s): R56.9 - UNSPECIFIED CONVULSIONS (2) Pneumonia Code(s): J18.9 - PNEUMONIA, UNSPECIFIED ORGANISM Qualifiers: Laterality: right Lung location: lower lobe of lung
[2018-12-23 13:58] LABS: BASO % 0.3 % (0-2.0); EOS % 0.4 % (0-4.5); HEMATOCRIT 42.3 % (35.4-49); HEMOGLOBIN 14.4 GM/dL (11.7-16.9); LYMPH % 47.3 % (8-40); MCH 29.7 pg (25.7-33.7); MCHC 34.2 g/dl (32.0-35.9); MONO % 12.8 % (3.8-10.2); NEUT % 39.2 % (42.8-82.8); PLATELET COUNT 167 K/MM3 (134-434); RBC 4.86 M/mm3 (4.00-5.60); RDW 13.6 % (11.9-15.9); WHITE BLOOD COUNT 4.1 K/mm3 (4.0-10.0)
[2018-12-23 14:16] LABS: ANION GAP 8 MMOL/L (8-16); BLOOD UREA NITROGEN 6 mg/dL (7-18); CALCIUM 9.1 mg/dL (8.5-10.1); CHLORIDE 102 mmol/L (98-107); CO2 27 mmol/L (21-32); CREATININE 0.8 mg/dL (0.55-1.3); GLUCOSE,RANDOM 104 mg/dL (74-106); POTASSIUM 4.1 mmol/L (3.5-5.1); SODIUM 138 mmol/L (136-145)
--- NOTE | 2018-12-23 16:24 | PN ---
Physical Exam: SUBJECTIVE: Patient seen and examined, per aid at bedside, He has taken his food and has not been in any distress OBJECTIVE: Vital Signs Period Temp Pulse Resp BP Sys/Garcia Pulse Ox Last 24 Hr 98.0 F-98.8 F 60-91 18-22 129-138/63-72 95-95 GENERAL: The patient is awake, not alert is at baseline MS per aid at bedside. HEAD: Normal with no signs of trauma. EYES: PERRL, extraocular movements intact, sclera anicteric, conjunctiva clear. No ptosis. ENT: Ears normal, nares patent, oropharynx clear without exudates, moist mucous membranes. NECK: Trachea midline, full range of motion, supple. LUNGS: Breath sounds equal, clear to auscultation bilaterally, no wheezes, no crackles, no accessory muscle use. HEART: Regular rate and rhythm, S1, S2 without murmur, rub or gallop. ABDOMEN: Soft, nontender, nondistended, normoactive bowel sounds, no guarding, no rebound, no hepatosplenomegaly, no masses. EXTREMITIES: 2+ pulses, warm, well-perfused, no edema. NEUROLOGICAL: contracted,at his baseline MS, No new focal neurologic findings PSYCH: Normal mood, normal affect. SKIN: Warm, dry, normal turgor, no rashes or lesions noted Laboratory Results - last 24 hr 12/23/18 12/23/18 13:35 13:35 WBC 4.1 RBC 4.86 Hgb 14.4 Hct 42.3 MCV 87.0 MCH 29.7 MCHC 34.2 RDW 13.6 Plt Count 167 MPV 9.0 Absolute Neuts (auto) 1.6 Neutrophils % 39.2 L D Lymphocytes % 47.3 H D Monocytes % 12.8 H Eosinophils % 0.4 Basophils % 0.3 Nucleated RBC % 0 Sodium 138 Potassium 4.1 Chloride 102 Carbon Dioxide 27 Anion Gap 8 BUN 6 L Creatinine 0.8 Creat Clearance w eGFR > 60 Random Glucose 104 Calcium 9.1 Active Medications Generic Name Dose Route Start Last Admin Trade Name Freq PRN Reason Stop Dose Admin Clonazepam 0.5 mg 12/21/18 22:00 Klonopin - PO Q8H PRN SEIZURES Dextrose/Sodium Chloride 1,000 mls @ 83 mls/hr 12/21/18 17:00 12/22/18 14:00 D5-1/2ns - IV 83 mls/hr ASDIR JAIRO Administration Piperacillin Sod/Tazobactam 50 mls @ 100 mls/hr 12/22/18 20:30 12/23/18 09:31 Sod 3.375 gm/ Dextrose IVPB 100 mls/hr Q8H-IV JAIRO Administration Protocol Loratadine 10 mg 12/21/18 22:00 12/22/18 22:13 Claritin - PO 10 mg HS JAIRO Administration Lorazepam 1 mg 12/22/18 10:00 12/23/18 10:49 Ativan - PO Not Given DAILY JAIRO Multi-Ingredient Lotion 1 applic 12/22/18 10:00 12/23/18 10:48 Eucerin (Small Jar) - TP 1 applic DAILY JAIRO Administration Multivitamins/Minerals/Vitamin C 1 tab 12/22/18 10:00 12/23/18 10:49 Tab-A-Vit - PO Not Given DAILY JAIRO Olanzapine 5 mg/ Olanzapine 2. 7.5 mg 12/21/18 17:00 12/23/18 10:49 5 mg PO Not Given DAILY JAIRO Simethicone 80 mg 12/21/18 22:00 12/23/18 14:12 Mylicon - PO Not Given TID JAIRO Valproate Sodium 750 mg 12/22/18 22:00 12/23/18 10:00 Depacon Injection - IV 750 mg BID JAIRO Administration ASSESSMENT/PLAN: 38 Y/O M W advanced developmental, known seizure disorder, BIBE with 2 episodes of seizure, was found to have subtheraputic valproic acid level. also was treated for possible aspiration PNA. Seizure in the setting of subtheraputic levels: evaluated by neuro and valproate increased to 750 mg BID, No more seizure while in hospital MS has improved and is now at his baseline Infectious W/U: has been treated for possible aspiration PNA, has been afebrile while in the hospital. Per ID recs will change antibiotics to Augmentine and plan for 7 day total antibiotics No UTI at this time. Will C/W rest of home medication Dispo: home tomorrow Visit type - Emergency Visit Emergency Visit: Yes ED Registration Date: 12/21/18 Care time: The patient presented to the Emergency Department on the above date and was hospitalized for further evaluation of their emergent condition. - New Patient This patient is new to me today: No - Critical Care Critical Care patient: No - Discharge Referral Referred to [facility] Med P.C.: No
[2018-12-23] MEDS: DEXTROSE 5%-0.45% SALINE 1,000 ML IV SCH (17:29)
[2018-12-23] MEDS ORDERED: PT OWN MED DRAWER 7, Y5N ONE (21:06)
[2018-12-23] MEDS: LORATADINE 10 MG TABLET PO SCH (22:28)
[2018-12-24] MEDS ORDERED: PIPERACILLIN/TAZOBACTAM 3.375 GM VIAL IVPB ONE ×3 (02:25→17:22)
[2018-12-24] MEDS ORDERED: DEXTROSE 5%-WATER - 50 ML IVPB ONE ×3 (02:25→17:22)
[2018-12-24] MEDS: PIPERACILLIN/TAZOB 3.375 GM 3.375 GM in DEXTROSE 5%-WATER - 50 ML IVPB SCH ×3 (02:50→17:37)
[2018-12-24 02:59] VITALS: BP 148/83; PULSE 102; TEMP 99.1
[2018-12-24] MEDS: SIMETHICONE 80 MG TAB.CHEW (FP) PO SCH ×2 (06:35→14:54)
--- NOTE | 2018-12-24 09:16 | PN ---
Progress Note (short form) - Note Progress Note: Neurology History of Present Illness: Patient is a 38M from [facility] with history of congenital diplegia, CP, MR , seizures and presented ER with multiple seizures on day of admission. EMS reported that the patient had a seizure prior to their arrival, then they witnessed a seizure in the field. Both seizures lasted for about a minute. BGM fingerstick was 126. Patient was given 5 versed IV in the field, resolved symptoms. Patient takes benzodiazepines and valproate for seizures. No other history available. Seen at bedside in ER and no seizure like activity. Spoke to tour sales representative from [place] and reports last seizure approximately 1-2 mons ago. Discussed with PCP and would benefit from increased dose of Depakene. Repeat Head CT completed on 12/22/18, no acute changes noted. No seizures overnight, discussed with TECHNICAL BUSINESS SYSTEMS ANALYST at bedside of adjustment of depekene again. Neurologically remains stable this AM. Patient with limited PO intake thus depakote being given IV. Getting ongoing medical optimization. Allergies/Adverse Reactions: Allergies Allergy/AdvReac Type Severity Reaction Status Date / Time No Known Allergies Allergy Verified 12/21/18 06:41 Active Medications Clonazepam (Klonopin -) 0.5 mg PO Q8H PRN PRN Reason: SEIZURES Last Admin: 12/23/18 22:28 Dose: 0.5 mg Dextrose/Sodium Chloride (D5-1/2ns -) 1,000 mls @ 83 mls/hr IV ASDIR JAIRO Last Admin: 12/23/18 17:29 Dose: 83 mls/hr Piperacillin Sod/Tazobactam (Sod 3.375 gm/ Dextrose) 50 mls @ 100 mls/hr IVPB Q8H-IV JAIRO; Protocol Last Admin: 12/24/18 02:50 Dose: 100 mls/hr Loratadine (Claritin -) 10 mg PO HS JAIRO Last Admin: 12/23/18 22:28 Dose: 10 mg Lorazepam (Ativan -) 1 mg PO DAILY JAIRO Last Admin: 12/23/18 10:49 Dose: Not Given Multi-Ingredient Lotion (Eucerin (Small Jar) -) 1 applic TP DAILY JAIRO Last Admin: 12/23/18 10:48 Dose: 1 applic Multivitamins/Minerals/Vitamin C (Tab-A-Vit -) 1 tab PO DAILY JAIRO Last Admin: 12/23/18 10:49 Dose: Not Given Olanzapine 5 mg/ Olanzapine 2. (5 mg) 7.5 mg PO DAILY [facility] Last Admin: 12/23/18 10:49 Dose: Not Given Simethicone (Mylicon -) 80 mg PO TID [facility] Last Admin: 12/24/18 06:35 Dose: Not Given Valproate Sodium (Depacon Injection -) 750 mg IV BID [facility] Last Admin: 12/23/18 22:35 Dose: 750 mg *Physical Exam - Vital Signs Vital Signs Period Temp Pulse Resp BP Sys/Garcia Pulse Ox Last 24 Hr 98.0 F-99.1 F 65-102 20-22 127-148/63-83 97 - Physical Exam GENERAL: Sonorous, no response to verbal stimuli HEAD: No signs of trauma EYES: No appreciable pupils or eye movement, sclera anicteric, conjunctiva clear ENT: Auricles normal inspection, hearing grossly normal, nares patent, Moist mucosa NECK: Contracted neck, no JVD LUNGS: No distress, clear to auscultation bilaterally HEART: Tachycardic, regular, normal S1 and S2, no murmurs, rubs or gallops, peripheral pulses normal and equal bilaterally. ABDOMEN: Soft, nontender, normoactive bowel sounds. No guarding, no rebound. No masses EXTREMITIES: Contractures in all extremities NEUROLOGICAL: Contracted, moving all extremities SKIN: Warm, Dry, normal turgor, no rashes or lesions noted. CBCD WBC 4.1 K/mm3 (4.0-10.0) 12/23/18 13:35 RBC 4.86 M/mm3 (4.00-5.60) 12/23/18 13:35 Hgb 14.4 GM/dL (11.7-16.9) 12/23/18 13:35 Hct 42.3 % (35.4-49) 12/23/18 13:35 MCV 87.0 fl (80-96) 12/23/18 13:35 MCHC 34.2 g/dl (32.0-35.9) 12/23/18 13:35 RDW 13.6 % (11.9-15.9) 12/23/18 13:35 Plt Count 167 K/MM3 (134-434) 12/23/18 13:35 MPV 9.0 fl (7.5-11.1) 12/23/18 13:35 CMP Sodium 138 mmol/L (136-145) 12/23/18 13:35 Potassium 4.1 mmol/L (3.5-5.1) 12/23/18 13:35 Chloride 102 mmol/L (98-107) 12/23/18 13:35 Carbon Dioxide 27 mmol/L (21-32) 12/23/18 13:35 Anion Gap 8 MMOL/L (8-16) 12/23/18 13:35 BUN 6 mg/dL (7-18) L 12/23/18 13:35 Creatinine 0.8 mg/dL (0.55-1.3) 12/23/18 13:35 Creat Clearance w eGFR > 60 (>60) 12/23/18 13:35 Random Glucose 104 mg/dL (74-106) 12/23/18 13:35 Calcium 9.1 mg/dL (8.5-10.1) 12/23/18 13:35 Total Bilirubin 0.4 mg/dL (0.2-1) 12/21/18 06:25 AST 43 U/L (15-37) H 12/21/18 06:25 ALT 59 U/L (13-61) 12/21/18 06:25 Alkaline Phosphatase 93 U/L (45-117) 12/21/18 06:25 Total Protein 8.0 g/dl (6.4-8.2) 12/21/18 06:25 Albumin 4.2 g/dl (3.4-5.0) 12/21/18 06:25 CARDIAC ENZYMES Troponin I < 0.02 ng/ml (0.00-0.05) 12/21/18 06:25 Diagnostics: Head CT - completed, reviewed Head CT (repeat) - completed Plan/Assessment: 38M from [facility] with history of congenital diplegia, CP, MR, seizures and presented ER with multiple seizures on day of admission. EMS reported that the patient had a seizure prior to their arrival, then they witnessed a seizure in the field. Both seizures lasted for about a minute. BGM fingerstick was 126. Patient was given 5 versed IV in the field, resolved symptoms. Patient takes benzodiazepines and valproate for seizures. No other history available. Seen at bedside in ER and no seizure like activity. Spoke to tour sales representative from [place] and reports last seizure approximately 1-2 mons ago. Discussed with PCP and would benefit from increased dose of Depakene, adjusted to 750. Monitor for infectious etiologies, hydration recommended. Seizure precations, medication compliance. Repeat head ct completed on 12/22/18, no changes noted. Remains on Zosyn, continue infectious mgmt as this can lower seizure threshold. Neurologically stable at this time. Limited PO intake, getting Depakote via IV. No seizure events.
[2018-12-24] MEDS: VALPROATE SODIUM 500 MG/5 ML VIAL IV SCH (10:30)
[2018-12-24] MEDS ORDERED: PT OWN MED DRAWER 7, Y5N ONE (11:12)
[2018-12-24] MEDS ORDERED: VALPROATE SODIUM 250 MG/5 ML UNIT DOSE CUP PO SCH (11:15)
[2018-12-24] MEDS: OLANZAPINE 5 MG, OLANZAPINE 2.5 MG PO SCH (11:19)
[2018-12-24] MEDS: LORazepam 1 MG TABLET PO SCH (11:19)
[2018-12-24] MEDS: MULTIVITAMINS (DAILY MVI) TABLET (FP) PO SCH (11:19)
[2018-12-24] MEDS: MINERAL OIL/PETROLAT/WATER TOPICAL CREAM 113 GM JAR TP SCH (11:31)
--- NOTE | 2018-12-24 13:44 | DS ---
Physical Exam: SUBJECTIVE: Patient seen and examined at the bedside. Aide at the bedside. in no acute distress. Tolerating PO. I fed patient pudding and he was able to swallow well. for discharge home. OBJECTIVE: Vital Signs Period Temp Pulse Resp BP Sys/Garcia Pulse Ox Last 24 Hr 98.0 F-99.1 F 65-102 20-22 127-148/68-83 97-97 PHYSICAL EXAM GENERAL: The patient is awake, not alert is at baseline MS per aid at bedside. HEAD: Normal with no signs of trauma. EYES: PERRL, extraocular movements intact, sclera anicteric, conjunctiva clear. No ptosis. ENT: Ears normal, nares patent, oropharynx clear without exudates, moist mucous membranes. NECK: Trachea midline, full range of motion, supple. LUNGS: Breath sounds equal, clear to auscultation bilaterally, no wheezes, no crackles, no accessory muscle use. HEART: Regular rate and rhythm, S1, S2 without murmur, rub or gallop. ABDOMEN: Soft, nontender, nondistended, normoactive bowel sounds, no guarding, no rebound, no hepatosplenomegaly, no masses. EXTREMITIES: 2+ pulses, warm, well-perfused, no edema. NEUROLOGICAL: contracted,at his baseline MS PSYCH: Normal mood, normal affect. SKIN: Warm, dry, normal turgor, no rashes or lesions noted LABS Laboratory Results - last 24 hr 12/23/18 12/23/18 13:35 13:35 WBC 4.1 RBC 4.86 Hgb 14.4 Hct 42.3 MCV 87.0 MCH 29.7 MCHC 34.2 RDW 13.6 Plt Count 167 MPV 9.0 Absolute Neuts (auto) 1.6 Neutrophils % 39.2 L D Lymphocytes % 47.3 H D Monocytes % 12.8 H Eosinophils % 0.4 Basophils % 0.3 Nucleated RBC % 0 Sodium 138 Potassium 4.1 Chloride 102 Carbon Dioxide 27 Anion Gap 8 BUN 6 L Creatinine 0.8 Creat Clearance w eGFR > 60 Random Glucose 104 Calcium 9.1 HOSPITAL COURSE: Date of Admission:12/21/18 Date of Discharge: 12/24/18 PRE HOSPITAL COURSE: Patient is a 38M from [facility] with history of congenital diplegia, CP, Mental retardation. Presented with seizures to the ER. EMS reported that the patient had a seizure prior to their arrival, then they witnessed a seizure in the field. Both seizures lasted for about a minute. BGM fingerstick was 126. Patient was given 5 versed IV in the field which resolved symptoms. HOSPITAL COURSE BY PROBLEM LIST: Seizure disorder: Noted to have subtherapeutic valporic acid levels on admission. Depakene increased to Depakene 750mg bid. continue all other home seizure medications. Followed by neurology during hospitalization and has been cleared for discharge. Possible Aspiration pneumonia: Treated with IV Zosyn. Will transition to Augmentin PO for 5 more days. He has been afebrile while in the hospital. DISCHARGE: Discharge back to [place]. Accepted back to [place] by Dr. Arias Ramsay. All medications called in to patient's home pharmacy. full code Minutes to complete discharge: 60 Discharge Summary Reason For Visit: ABD LEVEL OF OTHER DRUG,MEDICAMENT,OR BIOLOGICAL Current Active Problems Abnormal level of other drugs, medicaments and biological substances in specimens from other organs, systems and tissues (Acute) Pneumonia (Acute) Seizure (Acute) Condition: Improved - Instructions Diet, Activity, Other Instructions: Mr. Walters/Julito Facility: Mr. Nithin Walters was admitted for seizures and was found to have subtherapeutic valporic acid levels. He was also treated for possible aspiration pneumonia Here are our recommendations: Seizures No further seizures during hospitalization and has been seen by neurologist who recommends Depakene 750mg TWICE per day. We recommend that he follows up with Dr. Melton, neurologist within 1-2 weeks after discharge. Continue all your other seizure medications. Aspiration pneumonia We have treated with IV antibiotics for 3 days. We will continue Augmentin 500mg/125mg for 5 more days, twice daily at 8am and 8pm. He has been afebrile during the hospitalization. Please maintain aspiration precautions: - sit up to at least 45degress with all meals, preferably should be eating out of bed - thicken liquids to nectar thickened consistency - do not feed patient 2 hours before laying down to bed Thank you for allowing us to care for Mr. Nithin Walters. Referrals: Reji Li Jr [Non Staff, Medical] - Timi Melton MD [Staff Physician] - 1 Week Disposition: ALF FACILITY - Home Medications Comprehensive Discharge Medication List: Ambulatory Orders Cetirizine HCl [Zyrtec -] 10 mg PO HS 11/21/18 Clonazepam 0.5 mg PO TID 11/21/18 Emollient Combination No.92 [Lubriderm Daily Moisture] 177 ml TP DAILY 11/21/18 Lorazepam [Ativan] 1 mg PO DAILY 11/21/18 Multivitamin [Poly-Vitamin] 1 each PO DAILY 11/21/18 Olanzapine [Zyprexa] 7.5 mg PO DAILY 11/21/18 Simethicone [Gas Relief] 40 mg PO TID 11/21/18 Amox-Tr/K Cl [Augmentin 500-125mg Tablet -] 1 tab PO BID@0800,1730 #10 tablet Valproic Acid [Depakene] 750 mg PO BID #90 capsule 12/24/18 This patient is new to me today: Yes Date on this admission: 12/24/18 Emergency Visit: No Critical Care patient: No - Discharge Referral Referred to [facility] No
[2018-12-24] MEDS ORDERED: AMOX TR/POT CLAV 500MG/125MG TABLETS (FP) PO SCH (17:30)
[2018-12-24] MEDS: DEXTROSE 5%-0.45% SALINE 1,000 ML IV SCH (17:38)
== END 2018-12-24 18:19 | disposition home or self-care (01) | DRG 861 ==
LOC: JER 06:03 → JERBED 08:39 → OBSVTOIN 16:08 → J6S 17:05
PROVIDERS: ADMIT Internal Medicine; ATTEND Nurse Practitioner Family
DX: T42.6X6A Underdosing of other antiepileptic and sedative-hypnotic drugs, initial encounter (principal); G80.8 Other cerebral palsy; H54.3 Unqualified visual loss, both eyes; F73 Profound intellectual disabilities; G40.911 Epilepsy, unspecified, intractable, with status epilepticus; J69.0 Pneumonitis due to inhalation of food and vomit; E86.0 Dehydration; R41.82 Altered mental status, unspecified
CPT/HCPCS: 36415; 70450-TC; 71045-TC-FY; 80048; 80053; 80164; 81003; 81015; 83605; 84484; 85025; 85610; 85651; 85730; 87040; 87086; 87186; 87899; 93005; 93010; 99284-25; G0378

== ENCOUNTER 2020-10-09 17:38 | Inpatient (IN) | payer OTHER ==
[2020-10-09 19:40] LABS: BASO % 0.3 % (0-2.0); EOS % 0.3 % (0-4.5); HEMOGLOBIN 15.4 GM/dL (11.7-16.9); LYMPH % 34.9 % (8-40); MCH 29.4 pg (25.7-33.7); MCHC 32.7 g/dl (32.0-35.9); MEAN CELL VOLUME 89.8 fl (80-96); MEAN PLT VOLUME 8.6 fl (7.5-11.1); MONO % 22.9 % (3.8-10.2); NEUT % 41.6 % (42.8-82.8); PLATELET COUNT 203 K/MM3 (134-434); RBC 5.23 M/mm3 (4.00-5.60); RDW 14.9 % (11.9-15.9); WHITE BLOOD COUNT 5.1 K/mm3 (4.0-10.0)
[2020-10-09 19:58] LABS: POTASSIUM 4.3 mmol/L (3.5-5.1)
[2020-10-09 20:03] LABS: CALCIUM 9.9 mg/dL (8.5-10.1)
[2020-10-09 20:07] LABS: CREATININE 0.9 mg/dL (0.55-1.3)
[2020-10-09 20:08] LABS: BILIRUBIN,TOTAL 0.6 mg/dL (0.2-1); TOT PROT 8.6 g/dl (6.4-8.2)
[2020-10-09 20:44] LABS: ANISOCYTOSIS 1+; MACROCYTOSIS 0; PLATELET ESTIMATE NORMAL; TARGET CELLS 1+
[2020-10-09] MEDS ORDERED: SODIUM CHLORIDE 0.9% 500 ML INFUS.BAG IV ONE (20:48)
[2020-10-09 22:35] LABS: EPI CELLS 24 /uL (0-25.1); HYALINE CASTS 5 /uL (0-3.1); PH,URINE 5.5 (5.0-8.0); URINE APPEARANCE CLOUDY; URINE BACTERIA 48 /uL (0-1359); URINE BILIRUBIN NEGATIVE (NEGATIVE); URINE COLOR DK YELLOW; URINE GLUCOSE (UA) NEGATIVE (NEGATIVE); URINE KETONE 1+ (NEGATIVE); URINE LEUK ESTERASE NEGATIVE (NEGATIVE); URINE NITRITE NEGATIVE (NEGATIVE); URINE PROTEIN TRACE (NEGATIVE); URINE RBC 68 /uL (0-23.9); URINE WBC 16 /uL (0-25.8)
[2020-10-09] MEDS ORDERED: LACTATED RINGERS SOLUTION 1,000 ML IV STA (22:36)
[2020-10-09] MEDS ORDERED: AMPICILLIN NA/SULBACTAM NA 1.5 GM in SODIUM CHLORIDE 100 ML IVPB ONE (23:05)
[2020-10-10] MEDS: DEXTROSE 5%-NORMAL SALINE 1,000 ML IV SCH (04:52)
[2020-10-10] MEDS ORDERED: PATIENT'S OWN MEDICATION (NON-FORMULARY) (Clonazepam [Clonazepam] 1 MG Tablet) PO SCH (06:00)
[2020-10-10] MEDS ORDERED: clonazePAM 0.5 MG TABLET ONE ×2 (07:17→14:00)
[2020-10-10 07:28] LABS: BASO % 0.3 % (0-2.0); HEMATOCRIT 42.4 % (35.4-49); HEMOGLOBIN 13.9 GM/dL (11.7-16.9); LYMPH % 18.3 % (8-40); MCH 29.4 pg (25.7-33.7); MCHC 32.8 g/dl (32.0-35.9); MEAN CELL VOLUME 89.7 fl (80-96); MEAN PLT VOLUME 8.7 fl (7.5-11.1); MONO % 8.9 % (3.8-10.2); NEUT % 72.5 % (42.8-82.8); PLATELET COUNT 179 K/MM3 (134-434); RBC 4.73 M/mm3 (4.00-5.60); RDW 14.5 % (11.9-15.9); WHITE BLOOD COUNT 4.4 K/mm3 (4.0-10.0)
[2020-10-10] MEDS: clonazePAM 0.5 MG TABLET PO SCH ×3 (07:50→22:01)
[2020-10-10 07:54] LABS: INR 1.08 (0.83-1.09); PROTHROMBIN TIME (PATIENT) 13.3 SEC (9.7-13.0)
[2020-10-10 07:55] LABS: POTASSIUM 4.2 mmol/L (3.5-5.1)
[2020-10-10 07:57] LABS: CALCIUM 8.8 mg/dL (8.5-10.1)
[2020-10-10 07:58] LABS: ALBUMIN 3.5 g/dl (3.4-5.0); MAGNESIUM 1.7 mg/dL (1.8-2.4)
[2020-10-10 08:01] LABS: CREATININE 0.7 mg/dL (0.55-1.3); PHOSPHOROUS 2.6 mg/dL (2.5-4.9)
[2020-10-10 08:02] LABS: BILIRUBIN,TOTAL 0.5 mg/dL (0.2-1)
[2020-10-10 08:03] LABS: TOT PROT 7.7 g/dl (6.4-8.2)
[2020-10-10] MEDS ORDERED: DIVALPROEX SODIUM 500 MG TABLET E.C. ONE (09:42)
[2020-10-10] MEDS ORDERED: MULTIVITAMINS (DAILY MVI) TABLET (FP) ONE (09:42)
[2020-10-10] MEDS ORDERED: LORazepam 1 MG TABLET ONE (09:42)
[2020-10-10] MEDS ORDERED: DOCUSATE SODIUM 100 MG CAPSULE (FP) PO ONE (09:43)
[2020-10-10] MEDS ORDERED: ENOXAPARIN NA (PORCINE) 40 MG/0.4 ML DISP.SYRIN SQ ONE (09:43)
[2020-10-10] MEDS: ENOXAPARIN NA (PORCINE) 40 MG/0.4 ML DISP.SYRIN SQ SCH (09:55)
[2020-10-10] MEDS ORDERED: PATIENT'S OWN MEDICATION (NON-FORMULARY) (Multivitamin [Poly-Vitamin] 1 EACH Tab.Chew) PO SCH (10:00)
[2020-10-10] MEDS ORDERED: VALPROIC ACID 250 MG PO SCH (10:00)
[2020-10-10] MEDS ORDERED: VALPROATE SODIUM 250 MG/5 ML UNIT DOSE CUP PO SCH (10:00)
[2020-10-10] MEDS: DOCUSATE SODIUM 100 MG CAPSULE (FP) PO SCH ×2 (10:18→22:01)
[2020-10-10] MEDS: LORazepam 1 MG TABLET PO SCH (10:18)
[2020-10-10] MEDS: MULTIVITAMINS (DAILY MVI) TABLET (FP) PO SCH (10:19)
[2020-10-10] MEDS: AMPICILLIN NA/SULBACTAM NA 1.5 GM in SODIUM CHLORIDE 100 ML IVPB SCH ×2 (11:54→16:53)
[2020-10-10] MEDS ORDERED: AMPICILLIN NA/SULBACTAM NA 1.5 GM in SODIUM CHLORIDE 100 ML IVPB SCH (18:45)
[2020-10-10] MEDS ORDERED: VALPROATE SODIUM 500 MG/5 ML VIAL ONE (22:13)
[2020-10-10] MEDS: VALPROATE SODIUM 500 MG/5 ML VIAL IVPB SCH (22:33)
[2020-10-11] MEDS: DEXTROSE 5%-NORMAL SALINE 1,000 ML IV SCH (06:18)
[2020-10-11] MEDS: VALPROATE SODIUM 500 MG/5 ML VIAL IVPB SCH ×3 (06:19→22:02)
[2020-10-11] MEDS: clonazePAM 0.5 MG TABLET PO SCH ×3 (07:32→22:04)
[2020-10-11 08:00] LABS: BASO % 0.6 % (0-2.0); EOS % 0.5 % (0-4.5); HEMOGLOBIN 13.9 GM/dL (11.7-16.9); LYMPH % 54.1 % (8-40); MCH 29.8 pg (25.7-33.7); MEAN CELL VOLUME 90.2 fl (80-96); MONO % 13.4 % (3.8-10.2); NEUT % 31.4 % (42.8-82.8); PLATELET COUNT 179 K/MM3 (134-434); RBC 4.66 M/mm3 (4.00-5.60); RDW 14.6 % (11.9-15.9); WHITE BLOOD COUNT 4.4 K/mm3 (4.0-10.0)
[2020-10-11 08:31] LABS: ALBUMIN 3.4 g/dl (3.4-5.0); BLOOD UREA NITROGEN 13.8 mg/dL (7-18); CALCIUM 9.4 mg/dL (8.5-10.1); MAGNESIUM 1.9 mg/dL (1.8-2.4)
[2020-10-11 08:34] LABS: CREATININE 0.7 mg/dL (0.55-1.3)
[2020-10-11 08:35] LABS: BILIRUBIN,TOTAL 0.5 mg/dL (0.2-1); PHOSPHOROUS 3.4 mg/dL (2.5-4.9)
[2020-10-11 08:36] LABS: TOT PROT 7.6 g/dl (6.4-8.2)
[2020-10-11] MEDS: MULTIVITAMINS (DAILY MVI) TABLET (FP) PO SCH (11:58)
[2020-10-11] MEDS: DOCUSATE SODIUM 100 MG CAPSULE (FP) PO SCH ×2 (11:58→22:13)
[2020-10-11] MEDS: ENOXAPARIN NA (PORCINE) 40 MG/0.4 ML DISP.SYRIN SQ SCH (11:58)
[2020-10-11] MEDS: LORazepam 1 MG TABLET PO SCH (11:58)
[2020-10-11 12:03] VITALS: BMI 26.5
[2020-10-11] MEDS ORDERED: PT OWN MED DRAWER 7, Y5N ONE ×2 (15:59→21:39)
[2020-10-12] MEDS: DEXTROSE 5%-NORMAL SALINE 1,000 ML IV SCH ×2 (05:42→20:13)
[2020-10-12] MEDS: VALPROATE SODIUM 500 MG/5 ML VIAL IVPB SCH ×3 (05:43→21:19)
[2020-10-12] MEDS: clonazePAM 0.5 MG TABLET PO SCH ×3 (05:43→21:20)
[2020-10-12] MEDS ORDERED: PT OWN MED DRAWER 7, Y5N ONE ×3 (10:08→20:18)
[2020-10-12] MEDS: DOCUSATE SODIUM 100 MG CAPSULE (FP) PO SCH ×2 (10:12→21:20)
[2020-10-12] MEDS: MULTIVITAMINS (DAILY MVI) TABLET (FP) PO SCH (10:12)
[2020-10-12] MEDS: ENOXAPARIN NA (PORCINE) 40 MG/0.4 ML DISP.SYRIN SQ SCH (10:13)
[2020-10-12 10:37] LABS: HEMATOCRIT 39.2 % (35.4-49); MCH 29.9 pg (25.7-33.7); MCHC 33.1 g/dl (32.0-35.9); MEAN CELL VOLUME 90.3 fl (80-96); MEAN PLT VOLUME 8.8 fl (7.5-11.1); PLATELET COUNT 170 K/MM3 (134-434); RBC 4.34 M/mm3 (4.00-5.60); RDW 14.5 % (11.9-15.9); WHITE BLOOD COUNT 4.4 K/mm3 (4.0-10.0)
[2020-10-12 11:04] LABS: POTASSIUM 3.5 mmol/L (3.5-5.1)
[2020-10-12 11:05] LABS: CALCIUM 8.6 mg/dL (8.5-10.1)
[2020-10-12 11:06] LABS: ALBUMIN 2.8 g/dl (3.4-5.0)
[2020-10-12 11:08] LABS: CREATININE 0.6 mg/dL (0.55-1.3)
[2020-10-12 11:10] LABS: TOT PROT 6.4 g/dl (6.4-8.2)
[2020-10-12 11:20] LABS: BILIRUBIN,TOTAL 0.6 mg/dL (0.2-1)
[2020-10-12] MEDS: LORazepam 1 MG TABLET PO SCH (12:51)
[2020-10-12 23:07] LABS: HEP B CORE AB, TOT Negative (Negative)
[2020-10-13] MEDS: DEXTROSE 5%-NORMAL SALINE 1,000 ML IV SCH ×2 (05:25→12:40)
[2020-10-13] MEDS: VALPROATE SODIUM 500 MG/5 ML VIAL IVPB SCH ×3 (05:27→21:13)
[2020-10-13] MEDS: clonazePAM 0.5 MG TABLET PO SCH ×3 (06:34→21:13)
[2020-10-13 10:59] LABS: HEMATOCRIT 39.2 % (35.4-49); HEMOGLOBIN 12.8 GM/dL (11.7-16.9); MCH 29.5 pg (25.7-33.7); MCHC 32.7 g/dl (32.0-35.9); MEAN CELL VOLUME 90.4 fl (80-96); MEAN PLT VOLUME 9.1 fl (7.5-11.1); PLATELET COUNT 175 K/MM3 (134-434); RBC 4.33 M/mm3 (4.00-5.60); RDW 14.5 % (11.9-15.9); WHITE BLOOD COUNT 3.7 K/mm3 (4.0-10.0)
[2020-10-13 11:08] LABS: POTASSIUM 3.4 mmol/L (3.5-5.1)
[2020-10-13 11:09] LABS: CALCIUM 9.1 mg/dL (8.5-10.1)
[2020-10-13 11:10] LABS: ALBUMIN 3.1 g/dl (3.4-5.0); BLOOD UREA NITROGEN 10.7 mg/dL (7-18)
[2020-10-13 11:14] LABS: CREATININE 0.6 mg/dL (0.55-1.3)
[2020-10-13 11:15] LABS: BILIRUBIN,TOTAL 0.5 mg/dL (0.2-1); TOT PROT 6.8 g/dl (6.4-8.2)
[2020-10-13] MEDS ORDERED: PT OWN MED DRAWER 7, Y5N ONE ×3 (11:22→21:07)
[2020-10-13] MEDS ORDERED: POTASSIUM CHLORIDE TABS 20 MEQ TABLET.ER (FP) PO ONE (12:15)
[2020-10-13] MEDS: LORazepam 1 MG TABLET PO SCH (13:12)
[2020-10-13] MEDS: DOCUSATE SODIUM 100 MG CAPSULE (FP) PO SCH ×2 (13:13→21:13)
[2020-10-13] MEDS: MULTIVITAMINS (DAILY MVI) TABLET (FP) PO SCH (13:14)
[2020-10-13] MEDS: ENOXAPARIN NA (PORCINE) 40 MG/0.4 ML DISP.SYRIN SQ SCH (13:15)
[2020-10-14] MEDS: DEXTROSE 5%-NORMAL SALINE 1,000 ML IV SCH ×2 (02:25→17:01)
[2020-10-14] MEDS: VALPROATE SODIUM 500 MG/5 ML VIAL IVPB SCH ×3 (05:32→21:31)
[2020-10-14] MEDS: clonazePAM 0.5 MG TABLET PO SCH ×3 (05:32→21:32)
[2020-10-14] MEDS: LORazepam 1 MG TABLET PO SCH ×2 (11:00→11:33)
[2020-10-14] MEDS: MULTIVITAMINS (DAILY MVI) TABLET (FP) PO SCH ×2 (11:00→11:33)
[2020-10-14] MEDS: ENOXAPARIN NA (PORCINE) 40 MG/0.4 ML DISP.SYRIN SQ SCH (11:33)
[2020-10-14] MEDS: DOCUSATE SODIUM 100 MG CAPSULE (FP) PO SCH ×2 (11:34→21:32)
[2020-10-14] MEDS ORDERED: LORazepam 2 MG/ML SDV VIAL IVPUSH ONE (19:00)
[2020-10-15] MEDS: DEXTROSE 5%-NORMAL SALINE 1,000 ML IV SCH ×2 (05:20→17:22)
[2020-10-15] MEDS: VALPROATE SODIUM 500 MG/5 ML VIAL IVPB SCH ×3 (05:22→21:56)
[2020-10-15] MEDS: clonazePAM 0.5 MG TABLET PO SCH ×3 (05:23→21:56)
[2020-10-15] MEDS: MULTIVITAMINS (DAILY MVI) TABLET (FP) PO SCH (11:08)
[2020-10-15] MEDS: DOCUSATE SODIUM 100 MG CAPSULE (FP) PO SCH ×2 (11:08→21:56)
[2020-10-15] MEDS: LORazepam 1 MG TABLET PO SCH (11:08)
[2020-10-15] MEDS ORDERED: PT OWN MED DRAWER 7, Y5N ONE ×2 (13:41→20:21)
[2020-10-15] MEDS: ENOXAPARIN NA (PORCINE) 40 MG/0.4 ML DISP.SYRIN SQ SCH (14:01)
[2020-10-16] MEDS ORDERED: PT OWN MED DRAWER 7, Y5N ONE ×3 (06:12→20:18)
[2020-10-16] MEDS: VALPROATE SODIUM 500 MG/5 ML VIAL IVPB SCH ×3 (07:08→22:15)
[2020-10-16] MEDS: clonazePAM 0.5 MG TABLET PO SCH ×3 (07:08→22:16)
[2020-10-16] MEDS: DEXTROSE 5%-NORMAL SALINE 1,000 ML IV SCH (07:11)
[2020-10-16] MEDS: MULTIVITAMINS (DAILY MVI) TABLET (FP) PO SCH (10:26)
[2020-10-16] MEDS: LORazepam 1 MG TABLET PO SCH (10:26)
[2020-10-16] MEDS: DOCUSATE SODIUM 100 MG CAPSULE (FP) PO SCH ×2 (10:26→22:15)
[2020-10-16] MEDS: ENOXAPARIN NA (PORCINE) 40 MG/0.4 ML DISP.SYRIN SQ SCH (11:28)
[2020-10-16] MEDS: D5-1/2NS+20 MEQ KCL - 20 MEQ/1,000 ML INFUS.BAG IV SCH (15:26)
[2020-10-17] MEDS: VALPROATE SODIUM 500 MG/5 ML VIAL IVPB SCH ×3 (05:40→22:23)
[2020-10-17] MEDS: clonazePAM 0.5 MG TABLET PO SCH ×4 (05:41→22:33)
[2020-10-17] MEDS: LORazepam 1 MG TABLET PO SCH (10:00)
[2020-10-17] MEDS: DOCUSATE SODIUM 100 MG CAPSULE (FP) PO SCH ×2 (10:01→22:23)
[2020-10-17] MEDS: ENOXAPARIN NA (PORCINE) 40 MG/0.4 ML DISP.SYRIN SQ SCH (10:01)
[2020-10-17] MEDS: MULTIVITAMINS (DAILY MVI) TABLET (FP) PO SCH (10:01)
[2020-10-17] MEDS: D5-1/2NS+20 MEQ KCL - 20 MEQ/1,000 ML INFUS.BAG IV SCH ×3 (15:00→22:23)
[2020-10-17 20:29] LABS: BASO % 0.3 % (0-2.0); HEMATOCRIT 40.8 % (35.4-49); HEMOGLOBIN 13.3 GM/dL (11.7-16.9); LYMPH % 52.7 % (8-40); MCH 29.4 pg (25.7-33.7); MCHC 32.7 g/dl (32.0-35.9); MEAN CELL VOLUME 89.8 fl (80-96); MEAN PLT VOLUME 9.8 fl (7.5-11.1); MONO % 10.8 % (3.8-10.2); NEUT % 34.2 % (42.8-82.8); PLATELET COUNT 150 K/MM3 (134-434); RBC 4.54 M/mm3 (4.00-5.60); RDW 14.4 % (11.9-15.9); WHITE BLOOD COUNT 3.1 K/mm3 (4.0-10.0)
[2020-10-17 20:41] LABS: POTASSIUM 3.4 mmol/L (3.5-5.1)
[2020-10-17 20:43] LABS: BLOOD UREA NITROGEN 9.2 mg/dL (7-18); CALCIUM 9.1 mg/dL (8.5-10.1); MAGNESIUM 1.9 mg/dL (1.8-2.4)
[2020-10-17 20:46] LABS: CREATININE 0.8 mg/dL (0.55-1.3)
[2020-10-17] MEDS ORDERED: PT OWN MED DRAWER 7, Y5N ONE (22:19)
[2020-10-17] MEDS: POTASSIUM CHLORIDE ORAL LIQUID 20 MEQ/15 ML PO ONE ×2 (22:23→22:29)
[2020-10-17] MEDS: KCL 10 MEQ IVPB 10 MEQ/100 ML INFUS.BAG IVPB SCH (23:49)
[2020-10-18] MEDS: KCL 10 MEQ IVPB 10 MEQ/100 ML INFUS.BAG IVPB SCH ×2 (00:55→02:06)
[2020-10-18] MEDS: VALPROATE SODIUM 500 MG/5 ML VIAL IVPB SCH ×3 (05:30→21:04)
[2020-10-18] MEDS: clonazePAM 0.5 MG TABLET PO SCH ×3 (05:30→21:04)
[2020-10-18] MEDS ORDERED: PT OWN MED DRAWER 7, Y5N ONE ×4 (09:01→20:43)
[2020-10-18] MEDS: ENOXAPARIN NA (PORCINE) 40 MG/0.4 ML DISP.SYRIN SQ SCH (09:03)
[2020-10-18] MEDS: DOCUSATE SODIUM 100 MG CAPSULE (FP) PO SCH ×2 (09:03→21:04)
[2020-10-18] MEDS: LORazepam 1 MG TABLET PO SCH (09:03)
[2020-10-18] MEDS: MULTIVITAMINS (DAILY MVI) TABLET (FP) PO SCH (09:03)
[2020-10-18 09:30] LABS: BASO % 0.5 % (0-2.0); EOS % 1.2 % (0-4.5); HEMOGLOBIN 13.4 GM/dL (11.7-16.9); LYMPH % 59.3 % (8-40); MCH 29.4 pg (25.7-33.7); MCHC 32.7 g/dl (32.0-35.9); MEAN CELL VOLUME 89.7 fl (80-96); MEAN PLT VOLUME 9.4 fl (7.5-11.1); MONO % 9.6 % (3.8-10.2); NEUT % 29.4 % (42.8-82.8); PLATELET COUNT 152 K/MM3 (134-434); RBC 4.57 M/mm3 (4.00-5.60); WHITE BLOOD COUNT 3.7 K/mm3 (4.0-10.0)
[2020-10-18 09:43] LABS: POTASSIUM 3.9 mmol/L (3.5-5.1)
[2020-10-18 10:01] LABS: BLOOD UREA NITROGEN 5.6 mg/dL (7-18); CALCIUM 9.2 mg/dL (8.5-10.1)
[2020-10-18 10:04] LABS: CREATININE 0.7 mg/dL (0.55-1.3)
[2020-10-18] MEDS: D5-1/2NS+20 MEQ KCL - 20 MEQ/1,000 ML INFUS.BAG IV SCH (21:04)
[2020-10-19] MEDS ORDERED: LORazepam 2 MG/ML SDV VIAL IM STA (01:04)
[2020-10-19] MEDS ORDERED: PT OWN MED DRAWER 7, Y5N ONE ×2 (06:00→21:03)
[2020-10-19] MEDS: clonazePAM 0.5 MG TABLET PO SCH ×3 (06:09→21:43)
[2020-10-19] MEDS: VALPROATE SODIUM 500 MG/5 ML VIAL IVPB SCH ×3 (06:09→21:38)
[2020-10-19 08:40] LABS: BASO % 0.4 % (0-2.0); EOS % 1.3 % (0-4.5); HEMATOCRIT 40.4 % (35.4-49); HEMOGLOBIN 13.2 GM/dL (11.7-16.9); LYMPH % 54.9 % (8-40); MCH 29.4 pg (25.7-33.7); MCHC 32.7 g/dl (32.0-35.9); MEAN PLT VOLUME 9.2 fl (7.5-11.1); MONO % 13.1 % (3.8-10.2); NEUT % 30.3 % (42.8-82.8); PLATELET COUNT 138 K/MM3 (134-434); RBC 4.49 M/mm3 (4.00-5.60); RDW 14.6 % (11.9-15.9); WHITE BLOOD COUNT 2.6 K/mm3 (4.0-10.0)
[2020-10-19 08:59] LABS: POTASSIUM 3.7 mmol/L (3.5-5.1)
[2020-10-19 09:03] LABS: ALBUMIN 3.2 g/dl (3.4-5.0); CALCIUM 9.3 mg/dL (8.5-10.1)
[2020-10-19 09:04] LABS: BLOOD UREA NITROGEN 4.9 mg/dL (7-18)
[2020-10-19 09:07] LABS: CREATININE 0.7 mg/dL (0.55-1.3); PHOSPHOROUS 3.3 mg/dL (2.5-4.9)
[2020-10-19 09:08] LABS: BILIRUBIN,TOTAL 0.3 mg/dL (0.2-1); TOT PROT 6.9 g/dl (6.4-8.2)
[2020-10-19] MEDS: LORazepam 1 MG TABLET PO SCH (10:06)
[2020-10-19] MEDS: DOCUSATE SODIUM 100 MG CAPSULE (FP) PO SCH ×2 (10:06→21:43)
[2020-10-19] MEDS: MULTIVITAMINS (DAILY MVI) TABLET (FP) PO SCH (10:07)
[2020-10-19] MEDS: ENOXAPARIN NA (PORCINE) 40 MG/0.4 ML DISP.SYRIN SQ SCH (10:21)
[2020-10-19] MEDS: D5-1/2NS+20 MEQ KCL - 20 MEQ/1,000 ML INFUS.BAG IV SCH (21:43)
[2020-10-20] MEDS: VALPROATE SODIUM 500 MG/5 ML VIAL IVPB SCH ×3 (06:33→21:11)
[2020-10-20] MEDS: clonazePAM 0.5 MG TABLET PO SCH ×3 (06:33→21:12)
[2020-10-20] MEDS: LORazepam 1 MG TABLET PO SCH (09:28)
[2020-10-20] MEDS: MULTIVITAMINS (DAILY MVI) TABLET (FP) PO SCH (09:28)
[2020-10-20] MEDS: ENOXAPARIN NA (PORCINE) 40 MG/0.4 ML DISP.SYRIN SQ SCH (09:29)
[2020-10-20] MEDS: DOCUSATE SODIUM 100 MG CAPSULE (FP) PO SCH ×2 (09:29→21:12)
[2020-10-20 09:49] LABS: HEMATOCRIT 39.4 % (35.4-49); HEMOGLOBIN 12.8 GM/dL (11.7-16.9); MCH 29.2 pg (25.7-33.7); MCHC 32.5 g/dl (32.0-35.9); MEAN CELL VOLUME 89.7 fl (80-96); MEAN PLT VOLUME 9.6 fl (7.5-11.1); PLATELET COUNT 122 K/MM3 (134-434); RBC 4.39 M/mm3 (4.00-5.60); RDW 14.8 % (11.9-15.9); WHITE BLOOD COUNT 4.8 K/mm3 (4.0-10.0)
[2020-10-20 10:12] LABS: POTASSIUM 3.3 mmol/L (3.5-5.1)
[2020-10-20 10:48] LABS: CALCIUM 8.9 mg/dL (8.5-10.1)
[2020-10-20 10:49] LABS: BLOOD UREA NITROGEN 4.7 mg/dL (7-18)
[2020-10-20 10:52] LABS: CREATININE 0.7 mg/dL (0.55-1.3)
[2020-10-20 10:54] LABS: TOT PROT 6.6 g/dl (6.4-8.2)
[2020-10-20 10:55] LABS: BILIRUBIN,TOTAL 0.5 mg/dL (0.2-1)
[2020-10-20] MEDS ORDERED: POTASSIUM CHLORIDE TABS 20 MEQ TABLET.ER (FP) PO ONE (11:00)
[2020-10-20 17:22] LABS: BASO % 0.3 % (0-2.0); EOS % 1.7 % (0-4.5); HEMATOCRIT 40.7 % (35.4-49); HEMOGLOBIN 13.2 GM/dL (11.7-16.9); LYMPH % 59.7 % (8-40); MCH 29.3 pg (25.7-33.7); MCHC 32.6 g/dl (32.0-35.9); MEAN CELL VOLUME 89.9 fl (80-96); MONO % 9.5 % (3.8-10.2); NEUT % 28.8 % (42.8-82.8); PLATELET COUNT 124 K/MM3 (134-434); RBC 4.52 M/mm3 (4.00-5.60); RDW 14.3 % (11.9-15.9)
[2020-10-20] MEDS: D5-1/2NS+20 MEQ KCL - 20 MEQ/1,000 ML INFUS.BAG IV SCH (22:00)
[2020-10-21] MEDS ORDERED: LORazepam 2 MG/ML SDV VIAL IM ONE (00:27)
[2020-10-21] MEDS: VALPROATE SODIUM 500 MG/5 ML VIAL IVPB SCH ×3 (05:43→14:04)
[2020-10-21] MEDS: clonazePAM 0.5 MG TABLET PO SCH ×3 (05:43→21:48)
[2020-10-21] MEDS ORDERED: PT OWN MED DRAWER 7, Y5N ONE ×3 (07:38→21:28)
[2020-10-21 08:32] LABS: POTASSIUM 4.1 mmol/L (3.5-5.1)
[2020-10-21 08:37] LABS: BLOOD UREA NITROGEN 5.6 mg/dL (7-18); CALCIUM 9.1 mg/dL (8.5-10.1)
[2020-10-21 08:40] LABS: CREATININE 0.7 mg/dL (0.55-1.3)
[2020-10-21] MEDS: ENOXAPARIN NA (PORCINE) 40 MG/0.4 ML DISP.SYRIN SQ SCH (09:05)
[2020-10-21] MEDS: LORazepam 1 MG TABLET PO SCH (09:05)
[2020-10-21] MEDS: DOCUSATE SODIUM 100 MG CAPSULE (FP) PO SCH ×2 (09:06→21:49)
[2020-10-21] MEDS: MULTIVITAMINS (DAILY MVI) TABLET (FP) PO SCH (09:06)
[2020-10-21] MEDS: DIVALPROEX NA *ER* EXTEND REL 250 MG TABLET.SA PO SCH (21:49)
[2020-10-22] MEDS: clonazePAM 0.5 MG TABLET PO SCH ×2 (05:04→13:50)
[2020-10-22] MEDS: MULTIVITAMINS (DAILY MVI) TABLET (FP) PO SCH (10:08)
[2020-10-22] MEDS: DOCUSATE SODIUM 100 MG CAPSULE (FP) PO SCH (10:08)
[2020-10-22] MEDS: LORazepam 1 MG TABLET PO SCH (10:08)
[2020-10-22] MEDS: ENOXAPARIN NA (PORCINE) 40 MG/0.4 ML DISP.SYRIN SQ SCH (10:09)
[2020-10-22] MEDS: DIVALPROEX NA *ER* EXTEND REL 250 MG TABLET.SA PO SCH (10:09)
[2020-10-22 14:33] VITALS: BP 140/88; PULSE 60; TEMP 97.8
== END 2020-10-22 17:11 | disposition home health service (06) | DRG 421 ==
LOC: JER 17:38 → JERBED 23:36 → J8W 10-11 00:41
PROVIDERS: ADMIT Internal Medicine; ATTEND Internal Medicine
DX: R62.7 Adult failure to thrive (principal); Z68.26 Body mass index [BMI] 26.0-26.9, adult; G80.8 Other cerebral palsy; H54.3 Unqualified visual loss, both eyes; F72 Severe intellectual disabilities; G40.909 Epilepsy, unspecified, not intractable, without status epilepticus; Q67.5 Congenital deformity of spine; Q12.0 Congenital cataract; Q66.89 Other specified congenital deformities of feet; L21.9 Seborrheic dermatitis, unspecified; E86.0 Dehydration; R74.01 Elevation of levels of liver transaminase levels; R53.83 Other fatigue; E87.6 Hypokalemia; D70.9 Neutropenia, unspecified; D69.6 Thrombocytopenia, unspecified; E46 Unspecified protein-calorie malnutrition
CPT/HCPCS: 36415; 70450-TC; 71045-TC-FY; 71250-TC; 74150-TC; 80048; 80053; 81003; 82140; 82550; 82553; 83605; 83735; 84100; 84443; 84484; 85025; 85027; 85610; 86704; 86706; 86707; 86708; 86709; 86803; 87086; 87340; 93005; 93010; 99285-25; C9803; U0003

== ENCOUNTER 2021-12-01 18:47 | Inpatient (IN) | payer OTHER ==
[2021-12-01] MEDS ORDERED: levETIRAcetam 500 MG/5 ML INJECTION VIAL IVPB ONE ×2 (20:07→21:13)
[2021-12-01 20:26] LABS: BASO % 0.1 % (0-2.0); HEMATOCRIT 50.9 % (35.4-49); HEMOGLOBIN 16.2 GM/dL (11.7-16.9); LYMPH % 8.7 % (8-40); MCH 26.9 pg (25.7-33.7); MCHC 31.8 g/dl (32.0-35.9); MEAN CELL VOLUME 84.6 fl (80-96); MEAN PLT VOLUME 9.1 fl (7.5-11.1); MONO % 7.5 % (3.8-10.2); NEUT % 83.7 % (42.8-82.8); PLATELET COUNT 245 10^3/uL (134-434); RBC 6.02 M/mm3 (4.00-5.60); RDW 14.7 % (11.9-15.9); WHITE BLOOD COUNT 8.7 K/mm3 (4.0-10.0)
[2021-12-01 20:47] LABS: CHLORIDE 96 mmol/L (98-107); SODIUM 131 mmol/L (136-145)
[2021-12-01 21:05] LABS: ALBUMIN 4.4 g/dl (3.4-5.0); ANION GAP 10 MMOL/L (8-16); CALCIUM 10.6 mg/dL (8.5-10.1); CO2 25 mmol/L (21-32); CREATININE 0.9 mg/dL (0.55-1.3); GLUCOSE,RANDOM 116 mg/dL (74-106); MAGNESIUM 2.5 mg/dL (1.8-2.4)
[2021-12-01 21:07] LABS: BILIRUBIN,TOTAL 0.4 mg/dL (0.2-1); TOT PROT 9.1 g/dl (6.4-8.2)
[2021-12-01 21:08] LABS: ALK PHOS 159 U/L (45-117); PHOSPHOROUS 5.1 mg/dL (2.5-4.9); SGPT/ALT 72 U/L (13-61)
[2021-12-01 21:17] LABS: LACTIC ACID 4.8 mmol/L (0.4-2.0)
[2021-12-01 21:42] LABS: BLOOD UREA NITROGEN 26.6 mg/dL (7-18)
[2021-12-01 21:50] LABS: SGOT/AST 75 U/L (15-37)
[2021-12-01] MEDS ORDERED: SODIUM CHLORIDE 0.9% 500 ML INFUS.BAG IV ONE (22:39)
[2021-12-01 23:41] LABS: URINE APPEARANCE CLOUDY; URINE BILIRUBIN NEGATIVE (NEGATIVE); URINE COLOR YELLOW; URINE GLUCOSE (UA) 2+ (NEGATIVE); URINE KETONE TRACE (NEGATIVE); URINE LEUK ESTERASE NEGATIVE (NEGATIVE); URINE NITRITE NEGATIVE (NEGATIVE); URINE PROTEIN TRACE (NEGATIVE)
[2021-12-01 23:53] LABS: CALCIUM 9.5 mg/dL (8.5-10.1)
[2021-12-01 23:54] LABS: BLOOD UREA NITROGEN 18.1 mg/dL (7-18)
[2021-12-01 23:57] LABS: CREATININE 0.6 mg/dL (0.55-1.3)
[2021-12-02] MEDS ORDERED: ALBUTEROL SO4 0.083% IH SOL 2.5 MG/3 ML VIAL.NEB. NEB PRN (05:22)
[2021-12-02 06:49] LABS: BASO % 0.2 % (0-2.0); EOS % 0.2 % (0-4.5); HEMATOCRIT 44.2 % (35.4-49); HEMOGLOBIN 14.3 GM/dL (11.7-16.9); MCH 26.9 pg (25.7-33.7); MCHC 32.3 g/dl (32.0-35.9); MEAN CELL VOLUME 83.2 fl (80-96); MEAN PLT VOLUME 8.9 fl (7.5-11.1); MONO % 10.8 % (3.8-10.2); NEUT % 69.8 % (42.8-82.8); PLATELET COUNT 224 10^3/uL (134-434); RBC 5.31 M/mm3 (4.00-5.60); RDW 14.3 % (11.9-15.9); WHITE BLOOD COUNT 7.3 K/mm3 (4.0-10.0)
[2021-12-02 07:14] LABS: ALBUMIN 3.7 g/dl (3.4-5.0); BLOOD UREA NITROGEN 14.8 mg/dL (7-18); CALCIUM 9.6 mg/dL (8.5-10.1); MAGNESIUM 2.1 mg/dL (1.8-2.4)
[2021-12-02 07:17] LABS: CREATININE 0.5 mg/dL (0.55-1.3); PHOSPHOROUS 3.5 mg/dL (2.5-4.9)
[2021-12-02 07:19] LABS: BILIRUBIN,TOTAL 0.5 mg/dL (0.2-1); TOT PROT 7.3 g/dl (6.4-8.2)
[2021-12-02] MEDS: clonazePAM 0.5 MG TABLET PO SCH ×3 (09:58→22:20)
[2021-12-02] MEDS ORDERED: levETIRAcetam 500 MG TABLET (FP) PO ONE (09:59)
[2021-12-02] MEDS ORDERED: LORazepam 1 MG TABLET ONE (10:00)
[2021-12-02] MEDS ORDERED: ENOXAPARIN NA (PORCINE) 40 MG/0.4 ML DISP.SYRIN SQ ONE (10:00)
[2021-12-02] MEDS: ENOXAPARIN NA (PORCINE) 40 MG/0.4 ML DISP.SYRIN SQ SCH (10:11)
[2021-12-02] MEDS: LORazepam 1 MG TABLET PO SCH (11:00)
[2021-12-02] MEDS: levETIRAcetam 500 MG TABLET (FP) PO SCH ×2 (11:00→22:20)
[2021-12-02] MEDS: OLANZapine 7.5 MG TABLET PO SCH (22:19)
[2021-12-02] MEDS: LORATADINE 10 MG TABLET PO SCH (22:20)
[2021-12-03] MEDS: clonazePAM 0.5 MG TABLET PO SCH ×3 (05:42→21:06)
[2021-12-03] MEDS: ENOXAPARIN NA (PORCINE) 40 MG/0.4 ML DISP.SYRIN SQ SCH (10:59)
[2021-12-03] MEDS: LORazepam 1 MG TABLET PO SCH (10:59)
[2021-12-03] MEDS: levETIRAcetam 500 MG TABLET (FP) PO SCH ×2 (10:59→21:06)
[2021-12-03 13:02] LABS: BASO % 0.2 % (0-2.0); HEMATOCRIT 43.2 % (35.4-49); HEMOGLOBIN 14.7 GM/dL (11.7-16.9); LYMPH % 15.9 % (8-40); MCH 28.1 pg (25.7-33.7); MEAN CELL VOLUME 82.6 fl (80-96); MEAN PLT VOLUME 8.8 fl (7.5-11.1); MONO % 9.1 % (3.8-10.2); NEUT % 74.8 % (42.8-82.8); PLATELET COUNT 238 10^3/uL (134-434); RBC 5.23 M/mm3 (4.00-5.60); RDW 14.4 % (11.9-15.9)
[2021-12-03 13:19] LABS: CALCIUM 9.5 mg/dL (8.5-10.1)
[2021-12-03 13:20] LABS: ALBUMIN 3.8 g/dl (3.4-5.0); BLOOD UREA NITROGEN 23.3 mg/dL (7-18); MAGNESIUM 2.4 mg/dL (1.8-2.4)
[2021-12-03 13:23] LABS: CREATININE 0.7 mg/dL (0.55-1.3); PHOSPHOROUS 4.2 mg/dL (2.5-4.9)
[2021-12-03 13:24] LABS: BILIRUBIN,TOTAL 0.8 mg/dL (0.2-1); TOT PROT 7.4 g/dl (6.4-8.2)
[2021-12-03] MEDS: LORATADINE 10 MG TABLET PO SCH (21:06)
[2021-12-03] MEDS: OLANZapine 7.5 MG TABLET PO SCH (21:06)
[2021-12-04] MEDS: clonazePAM 0.5 MG TABLET PO SCH ×3 (05:07→22:05)
[2021-12-04 09:07] LABS: CALCIUM 10.3 mg/dL (8.5-10.1)
[2021-12-04 09:08] LABS: ALBUMIN 4.2 g/dl (3.4-5.0); BLOOD UREA NITROGEN 31.9 mg/dL (7-18)
[2021-12-04 09:11] LABS: CREATININE 0.8 mg/dL (0.55-1.3)
[2021-12-04 09:13] LABS: BILIRUBIN,TOTAL 0.9 mg/dL (0.2-1); TOT PROT 8.2 g/dl (6.4-8.2)
[2021-12-04] MEDS: ENOXAPARIN NA (PORCINE) 40 MG/0.4 ML DISP.SYRIN SQ SCH (10:36)
[2021-12-04] MEDS: levETIRAcetam 500 MG TABLET (FP) PO SCH ×2 (10:36→22:04)
[2021-12-04] MEDS: LORazepam 1 MG TABLET PO SCH (10:36)
[2021-12-04] MEDS: LORATADINE 10 MG TABLET PO SCH (22:04)
[2021-12-04] MEDS: OLANZapine 7.5 MG TABLET PO SCH (22:08)
[2021-12-05] MEDS: clonazePAM 0.5 MG TABLET PO SCH ×3 (06:18→22:01)
[2021-12-05] MEDS: ENOXAPARIN NA (PORCINE) 40 MG/0.4 ML DISP.SYRIN SQ SCH (09:50)
[2021-12-05] MEDS: levETIRAcetam 250 MG TABLET PO SCH ×2 (09:50→22:00)
[2021-12-05] MEDS: LORazepam 1 MG TABLET PO SCH (09:50)
[2021-12-05] MEDS ORDERED: SODIUM CHLORIDE 0.45% 1,000 ML IV SCH (15:00)
[2021-12-05] MEDS ORDERED: DEXTROSE 5%-WATER - 50 ML IVPB ONE (15:20)
[2021-12-05] MEDS ORDERED: cefTRIAXone SODIUM 1 GM VIAL ONE (15:20)
[2021-12-05] MEDS: CEFTRIAXONE 1 GM in DEXTROSE 5%-WATER - 50 ML IVPB SCH (16:15)
[2021-12-05] MEDS: LORATADINE 10 MG TABLET PO SCH (22:01)
[2021-12-05] MEDS: OLANZapine 7.5 MG TABLET PO SCH (22:01)
[2021-12-05 23:14] VITALS: BMI 19.1
[2021-12-06] MEDS: clonazePAM 0.5 MG TABLET PO SCH ×3 (05:08→23:22)
[2021-12-06 08:51] LABS: BASO % 0.4 % (0-2.0); EOS % 0.2 % (0-4.5); HEMATOCRIT 47.2 % (35.4-49); HEMOGLOBIN 15.7 GM/dL (11.7-16.9); LYMPH % 19.6 % (8-40); MCH 28.3 pg (25.7-33.7); MCHC 33.4 g/dl (32.0-35.9); MEAN CELL VOLUME 84.8 fl (80-96); MEAN PLT VOLUME 8.2 fl (7.5-11.1); MONO % 14.7 % (3.8-10.2); NEUT % 65.1 % (42.8-82.8); PLATELET COUNT 277 10^3/uL (134-434); RBC 5.56 M/mm3 (4.00-5.60); RDW 14.5 % (11.9-15.9); WHITE BLOOD COUNT 7.2 K/mm3 (4.0-10.0)
[2021-12-06 09:13] LABS: ALBUMIN 3.5 g/dl (3.4-5.0); BLOOD UREA NITROGEN 29.4 mg/dL (7-18); CALCIUM 9.9 mg/dL (8.5-10.1)
[2021-12-06 09:16] LABS: CREATININE 0.6 mg/dL (0.55-1.3)
[2021-12-06] MEDS ORDERED: DEXTROSE 5%-WATER - 50 ML IVPB ONE (09:16)
[2021-12-06] MEDS ORDERED: cefTRIAXone SODIUM 1 GM VIAL ONE (09:16)
[2021-12-06 09:18] LABS: BILIRUBIN,TOTAL 0.8 mg/dL (0.2-1); TOT PROT 7.6 g/dl (6.4-8.2)
[2021-12-06] MEDS: levETIRAcetam 250 MG TABLET PO SCH ×2 (09:42→23:22)
[2021-12-06] MEDS: CEFTRIAXONE 1 GM in DEXTROSE 5%-WATER - 50 ML IVPB SCH (09:42)
[2021-12-06] MEDS: LORazepam 1 MG TABLET PO SCH (09:43)
[2021-12-06] MEDS: ENOXAPARIN NA (PORCINE) 40 MG/0.4 ML DISP.SYRIN SQ SCH (11:05)
[2021-12-06] MEDS: DOXAZOSIN MESYLATE 4 MG TABLET PO SCH (13:27)
[2021-12-06] MEDS ORDERED: DEXTROSE 5%-0.2% SALINE - 1,000 ML IV SCH (13:45)
[2021-12-06] MEDS: OLANZapine 7.5 MG TABLET PO SCH (23:22)
[2021-12-06] MEDS: LORATADINE 10 MG TABLET PO SCH (23:22)
[2021-12-07] MEDS: clonazePAM 0.5 MG TABLET PO SCH ×3 (07:02→21:46)
[2021-12-07 08:11] LABS: BASO % 0.6 % (0-2.0); EOS % 0.2 % (0-4.5); HEMATOCRIT 43.7 % (35.4-49); HEMOGLOBIN 14.4 GM/dL (11.7-16.9); LYMPH % 27.8 % (8-40); MCH 27.5 pg (25.7-33.7); MCHC 32.8 g/dl (32.0-35.9); MEAN CELL VOLUME 83.7 fl (80-96); MEAN PLT VOLUME 8.1 fl (7.5-11.1); MONO % 14.2 % (3.8-10.2); NEUT % 57.2 % (42.8-82.8); PLATELET COUNT 260 10^3/uL (134-434); RBC 5.22 M/mm3 (4.00-5.60); RDW 14.2 % (11.9-15.9); WHITE BLOOD COUNT 6.4 K/mm3 (4.0-10.0)
[2021-12-07 08:42] LABS: CALCIUM 9.7 mg/dL (8.5-10.1)
[2021-12-07 08:43] LABS: BLOOD UREA NITROGEN 24.2 mg/dL (7-18)
[2021-12-07 08:46] LABS: CREATININE 0.6 mg/dL (0.55-1.3)
[2021-12-07] MEDS ORDERED: cefTRIAXone SODIUM 1 GM VIAL ONE (09:58)
[2021-12-07] MEDS ORDERED: DEXTROSE 5%-WATER - 50 ML IVPB ONE ×2 (09:58→17:01)
[2021-12-07] MEDS: DOXAZOSIN MESYLATE 4 MG TABLET PO SCH (10:00)
[2021-12-07] MEDS: ENOXAPARIN NA (PORCINE) 40 MG/0.4 ML DISP.SYRIN SQ SCH (10:20)
[2021-12-07] MEDS: levETIRAcetam 250 MG TABLET PO SCH ×2 (10:20→21:46)
[2021-12-07] MEDS: CEFTRIAXONE 1 GM in DEXTROSE 5%-WATER - 50 ML IVPB SCH (10:20)
[2021-12-07] MEDS: LORazepam 1 MG TABLET PO SCH (10:32)
[2021-12-07] MEDS ORDERED: PIPERACILLIN/TAZOBACTAM 2.25 GM VIAL IVPB ONE (17:01)
[2021-12-07] MEDS: PIPERACILLIN/TAZOB 2.25 GM 2.25 GM in DEXTROSE 5%-WATER - 50 ML IVPB SCH (17:48)
[2021-12-07] MEDS ORDERED: PIPERACILLIN/TAZOB 2.25 GM 2.25 GM in DEXTROSE 5%-WATER - 50 ML IVPB SCH (18:00)
[2021-12-07] MEDS: LORATADINE 10 MG TABLET PO SCH (21:46)
[2021-12-07] MEDS: OLANZapine 7.5 MG TABLET PO SCH (21:47)
[2021-12-08] MEDS ORDERED: PIPERACILLIN/TAZOBACTAM 2.25 GM VIAL IVPB ONE ×3 (01:46→17:24)
[2021-12-08] MEDS ORDERED: DEXTROSE 5%-WATER - 50 ML IVPB ONE ×3 (01:46→17:24)
[2021-12-08] MEDS: PIPERACILLIN/TAZOB 2.25 GM 2.25 GM in DEXTROSE 5%-WATER - 50 ML IVPB SCH ×3 (01:49→17:25)
[2021-12-08] MEDS: clonazePAM 0.5 MG TABLET PO SCH ×3 (06:09→21:57)
[2021-12-08 08:39] LABS: BASO % 0.7 % (0-2.0); EOS % 0.7 % (0-4.5); HEMATOCRIT 44.3 % (35.4-49); HEMOGLOBIN 14.1 GM/dL (11.7-16.9); LYMPH % 38.3 % (8-40); MCH 27.3 pg (25.7-33.7); MCHC 31.9 g/dl (32.0-35.9); MEAN CELL VOLUME 85.5 fl (80-96); MEAN PLT VOLUME 8.1 fl (7.5-11.1); MONO % 13.8 % (3.8-10.2); NEUT % 46.5 % (42.8-82.8); PLATELET COUNT 290 10^3/uL (134-434); RBC 5.19 M/mm3 (4.00-5.60); RDW 14.3 % (11.9-15.9); WHITE BLOOD COUNT 5.5 K/mm3 (4.0-10.0)
[2021-12-08 09:04] LABS: BLOOD UREA NITROGEN 21.2 mg/dL (7-18); CALCIUM 10.2 mg/dL (8.5-10.1)
[2021-12-08 09:07] LABS: CREATININE 0.7 mg/dL (0.55-1.3)
[2021-12-08] MEDS: DOXAZOSIN MESYLATE 4 MG TABLET PO SCH (09:33)
[2021-12-08] MEDS: ENOXAPARIN NA (PORCINE) 40 MG/0.4 ML DISP.SYRIN SQ SCH (09:33)
[2021-12-08] MEDS: levETIRAcetam 250 MG TABLET PO SCH ×2 (09:33→21:57)
[2021-12-08] MEDS: LORazepam 1 MG TABLET PO SCH (09:33)
[2021-12-08] MEDS ORDERED: SODIUM CHLORIDE 0.45% 1,000 ML IV SCH (16:45)
[2021-12-08] MEDS: OLANZapine 7.5 MG TABLET PO SCH (21:58)
[2021-12-08] MEDS: LORATADINE 10 MG TABLET PO SCH (21:58)
[2021-12-09] MEDS ORDERED: DEXTROSE 5%-WATER - 50 ML IVPB ONE ×3 (01:22→16:13)
[2021-12-09] MEDS ORDERED: PIPERACILLIN/TAZOBACTAM 2.25 GM VIAL IVPB ONE ×3 (01:22→16:13)
[2021-12-09] MEDS: PIPERACILLIN/TAZOB 2.25 GM 2.25 GM in DEXTROSE 5%-WATER - 50 ML IVPB SCH ×3 (01:29→17:10)
[2021-12-09] MEDS: clonazePAM 0.5 MG TABLET PO SCH ×3 (05:36→21:30)
[2021-12-09] MEDS: DOXAZOSIN MESYLATE 4 MG TABLET PO SCH (09:31)
[2021-12-09] MEDS: levETIRAcetam 250 MG TABLET PO SCH ×2 (09:31→21:30)
[2021-12-09] MEDS: ENOXAPARIN NA (PORCINE) 40 MG/0.4 ML DISP.SYRIN SQ SCH (09:45)
[2021-12-09] MEDS: LORazepam 1 MG TABLET PO SCH (09:45)
[2021-12-09 10:31] LABS: BASO % 0.6 % (0-2.0); EOS % 0.9 % (0-4.5); HEMATOCRIT 45.4 % (35.4-49); LYMPH % 38.3 % (8-40); MCH 27.5 pg (25.7-33.7); MCHC 30.9 g/dl (32.0-35.9); MEAN CELL VOLUME 88.8 fl (80-96); MEAN PLT VOLUME 8.1 fl (7.5-11.1); MONO % 8.3 % (3.8-10.2); NEUT % 51.9 % (42.8-82.8); PLATELET COUNT 284 10^3/uL (134-434); RBC 5.11 M/mm3 (4.00-5.60); RDW 14.2 % (11.9-15.9); WHITE BLOOD COUNT 5.7 K/mm3 (4.0-10.0)
[2021-12-09 10:38] LABS: CALCIUM 9.5 mg/dL (8.5-10.1)
[2021-12-09 10:39] LABS: BLOOD UREA NITROGEN 22.8 mg/dL (7-18)
[2021-12-09 10:42] LABS: CREATININE 0.6 mg/dL (0.55-1.3)
[2021-12-09] MEDS: LORATADINE 10 MG TABLET PO SCH (21:30)
[2021-12-09] MEDS: OLANZapine 7.5 MG TABLET PO SCH (21:31)
[2021-12-10] MEDS ORDERED: DEXTROSE 5%-WATER - 50 ML IVPB ONE ×3 (01:45→18:02)
[2021-12-10] MEDS ORDERED: PIPERACILLIN/TAZOBACTAM 2.25 GM VIAL IVPB ONE ×3 (01:45→18:02)
[2021-12-10] MEDS: PIPERACILLIN/TAZOB 2.25 GM 2.25 GM in DEXTROSE 5%-WATER - 50 ML IVPB SCH ×3 (02:02→18:03)
[2021-12-10] MEDS: clonazePAM 0.5 MG TABLET PO SCH ×3 (06:33→21:27)
[2021-12-10] MEDS: LORazepam 1 MG TABLET PO SCH (09:23)
[2021-12-10] MEDS: ENOXAPARIN NA (PORCINE) 40 MG/0.4 ML DISP.SYRIN SQ SCH (09:23)
[2021-12-10] MEDS: levETIRAcetam 250 MG TABLET PO SCH ×2 (09:23→21:26)
[2021-12-10] MEDS: DOXAZOSIN MESYLATE 4 MG TABLET PO SCH (09:25)
[2021-12-10 09:44] LABS: BASO % 0.6 % (0-2.0); EOS % 1.7 % (0-4.5); HEMATOCRIT 43.7 % (35.4-49); LYMPH % 44.1 % (8-40); MCH 27.5 pg (25.7-33.7); MCHC 32.1 g/dl (32.0-35.9); MEAN CELL VOLUME 85.5 fl (80-96); MONO % 7.7 % (3.8-10.2); NEUT % 45.9 % (42.8-82.8); PLATELET COUNT 306 10^3/uL (134-434); RBC 5.11 M/mm3 (4.00-5.60); RDW 13.7 % (11.9-15.9); WHITE BLOOD COUNT 4.8 K/mm3 (4.0-10.0)
[2021-12-10 10:01] LABS: CALCIUM 9.9 mg/dL (8.5-10.1)
[2021-12-10 10:03] LABS: BLOOD UREA NITROGEN 22.4 mg/dL (7-18)
[2021-12-10 10:06] LABS: CREATININE 0.8 mg/dL (0.55-1.3)
[2021-12-10] MEDS: LORATADINE 10 MG TABLET PO SCH (21:26)
[2021-12-10] MEDS: OLANZAPINE 5 MG, OLANZAPINE 2.5 MG PO SCH (21:27)
[2021-12-11] MEDS ORDERED: PIPERACILLIN/TAZOBACTAM 2.25 GM VIAL IVPB ONE ×3 (01:02→18:09)
[2021-12-11] MEDS ORDERED: DEXTROSE 5%-WATER - 50 ML IVPB ONE ×3 (01:03→18:10)
[2021-12-11] MEDS: PIPERACILLIN/TAZOB 2.25 GM 2.25 GM in DEXTROSE 5%-WATER - 50 ML IVPB SCH ×3 (01:06→18:13)
[2021-12-11] MEDS: clonazePAM 0.5 MG TABLET PO SCH ×3 (05:35→21:18)
[2021-12-11 09:48] LABS: BASO % 0.7 % (0-2.0); EOS % 1.8 % (0-4.5); HEMATOCRIT 45.6 % (35.4-49); HEMOGLOBIN 14.8 GM/dL (11.7-16.9); LYMPH % 46.9 % (8-40); MCH 27.7 pg (25.7-33.7); MCHC 32.5 g/dl (32.0-35.9); MEAN CELL VOLUME 85.3 fl (80-96); MEAN PLT VOLUME 8.4 fl (7.5-11.1); MONO % 10.4 % (3.8-10.2); NEUT % 40.2 % (42.8-82.8); PLATELET COUNT 341 10^3/uL (134-434); RBC 5.34 M/mm3 (4.00-5.60); RDW 14.1 % (11.9-15.9); WHITE BLOOD COUNT 4.9 K/mm3 (4.0-10.0)
[2021-12-11 10:02] LABS: ALBUMIN 3.5 g/dl (3.4-5.0); BLOOD UREA NITROGEN 22.8 mg/dL (7-18); CALCIUM 10.4 mg/dL (8.5-10.1)
[2021-12-11 10:05] LABS: CREATININE 0.9 mg/dL (0.55-1.3)
[2021-12-11 10:08] LABS: BILIRUBIN,TOTAL 0.5 mg/dL (0.2-1); TOT PROT 7.6 g/dl (6.4-8.2)
[2021-12-11] MEDS: levETIRAcetam 250 MG TABLET PO SCH ×2 (10:31→21:18)
[2021-12-11] MEDS: LORazepam 1 MG TABLET PO SCH (10:31)
[2021-12-11] MEDS: DOXAZOSIN MESYLATE 4 MG TABLET PO SCH (10:31)
[2021-12-11] MEDS: ENOXAPARIN NA (PORCINE) 40 MG/0.4 ML DISP.SYRIN SQ SCH (10:31)
[2021-12-11] MEDS: LORATADINE 10 MG TABLET PO SCH (21:18)
[2021-12-11] MEDS: OLANZAPINE 5 MG, OLANZAPINE 2.5 MG PO SCH (21:18)
[2021-12-12] MEDS ORDERED: DEXTROSE 5%-WATER - 50 ML IVPB ONE ×3 (00:06→17:36)
[2021-12-12] MEDS ORDERED: PIPERACILLIN/TAZOBACTAM 2.25 GM VIAL IVPB ONE ×3 (00:06→17:36)
[2021-12-12] MEDS: PIPERACILLIN/TAZOB 2.25 GM 2.25 GM in DEXTROSE 5%-WATER - 50 ML IVPB SCH ×3 (01:05→17:37)
[2021-12-12] MEDS: clonazePAM 0.5 MG TABLET PO SCH ×3 (05:50→22:05)
[2021-12-12] MEDS: ENOXAPARIN NA (PORCINE) 40 MG/0.4 ML DISP.SYRIN SQ SCH (09:28)
[2021-12-12] MEDS: levETIRAcetam 250 MG TABLET PO SCH ×2 (09:29→22:05)
[2021-12-12] MEDS: DOXAZOSIN MESYLATE 4 MG TABLET PO SCH (09:29)
[2021-12-12] MEDS: LORazepam 1 MG TABLET PO SCH (09:29)
[2021-12-12] MEDS: OLANZAPINE 5 MG, OLANZAPINE 2.5 MG PO SCH (22:05)
[2021-12-12] MEDS: LORATADINE 10 MG TABLET PO SCH (22:05)
[2021-12-13] MEDS ORDERED: PIPERACILLIN/TAZOBACTAM 2.25 GM VIAL IVPB ONE ×2 (01:13→08:45)
[2021-12-13] MEDS ORDERED: DEXTROSE 5%-WATER - 50 ML IVPB ONE ×2 (01:13→08:45)
[2021-12-13] MEDS: PIPERACILLIN/TAZOB 2.25 GM 2.25 GM in DEXTROSE 5%-WATER - 50 ML IVPB SCH ×2 (01:15→09:03)
[2021-12-13] MEDS: clonazePAM 0.5 MG TABLET PO SCH (06:08)
[2021-12-13] MEDS: LORazepam 1 MG TABLET PO SCH (09:02)
[2021-12-13] MEDS: ENOXAPARIN NA (PORCINE) 40 MG/0.4 ML DISP.SYRIN SQ SCH (09:03)
[2021-12-13] MEDS: levETIRAcetam 250 MG TABLET PO SCH (09:03)
[2021-12-13] MEDS: DOXAZOSIN MESYLATE 4 MG TABLET PO SCH (09:06)
[2021-12-13 09:13] LABS: BASO % 0.9 % (0-2.0); EOS % 0.7 % (0-4.5); HEMATOCRIT 46.7 % (35.4-49); HEMOGLOBIN 15.4 GM/dL (11.7-16.9); LYMPH % 34.3 % (8-40); MCH 27.7 pg (25.7-33.7); MEAN CELL VOLUME 84.1 fl (80-96); MEAN PLT VOLUME 7.8 fl (7.5-11.1); MONO % 13.2 % (3.8-10.2); NEUT % 50.9 % (42.8-82.8); PLATELET COUNT 338 10^3/uL (134-434); RBC 5.56 M/mm3 (4.00-5.60); RDW 13.7 % (11.9-15.9)
[2021-12-13 09:38] LABS: BLOOD UREA NITROGEN 26.6 mg/dL (7-18); CALCIUM 10.2 mg/dL (8.5-10.1)
[2021-12-13 09:42] LABS: CREATININE 0.9 mg/dL (0.55-1.3)
[2021-12-13 10:45] VITALS: BP 118/78; PULSE 88; TEMP 98.7
== END 2021-12-13 15:14 | disposition home or self-care (01) | DRG 861 ==
LOC: JER 18:47 → JERBED 12-02 03:32 → J6S 12-02 20:06
PROVIDERS: ADMIT Internal Medicine
DX: R74.01 Elevation of levels of liver transaminase levels (principal); T42.6X5A Adverse effect of other antiepileptic and sedative-hypnotic drugs, initial encounter; G92.8 Other toxic encephalopathy; E87.2 Acidosis; D75.1 Secondary polycythemia; F73 Profound intellectual disabilities; E87.1 Hypo-osmolality and hyponatremia; E83.52 Hypercalcemia; E87.5 Hyperkalemia; E86.0 Dehydration; G40.909 Epilepsy, unspecified, not intractable, without status epilepticus; G80.8 Other cerebral palsy; R09.02 Hypoxemia; R62.7 Adult failure to thrive; Z68.1 Body mass index [BMI] 19.9 or less, adult; L03.119 Cellulitis of unspecified part of limb; H54.7 Unspecified visual loss; Q67.5 Congenital deformity of spine; Q66.89 Other specified congenital deformities of feet; L21.9 Seborrheic dermatitis, unspecified; Q65.89 Other specified congenital deformities of hip; R41.82 Altered mental status, unspecified; R33.9 Retention of urine, unspecified
CPT/HCPCS: 36415; 70450-TC; 71045-TC-FY; 76700-TC; 80048; 80053; 80177; 81003; 82140; 82550; 82553; 82977; 83605; 83735; 84100; 84484; 85025; 87040; 87086; 87186; 93005; 93010; 93970-TC; 99285-25; C9803; U0003; U0005

== ENCOUNTER 2022-08-27 07:27 | Inpatient (IN) | payer OTHER ==
[2022-08-27] MEDS ORDERED: LORazepam 2 MG/ML SDV VIAL IM ONE (07:35)
[2022-08-27] MEDS ORDERED: LORazepam 2 MG/ML SDV VIAL IVPUSH ONE (07:45)
[2022-08-27] MEDS ORDERED: SODIUM CHLORIDE 1,000 ML IV ONE (07:47)
[2022-08-27] MEDS ORDERED: ACETAMINOPHEN 1000 MG/100 ML BAG IVPB ONE (07:59)
[2022-08-27] MEDS ORDERED: levETIRAcetam 500 MG/5 ML INJECTION VIAL IVPB ONE ×2 (08:22→08:33)
[2022-08-27 08:24] LABS: VENOUS BASE EXCESS -2.9 mmol/L (-2-2); VENOUS O2 SATURATION 69.2 % (70-80); VENOUS PH 7.21 (7.310-7.410)
[2022-08-27 08:27] LABS: BASO % 0.3 % (0-2.0); EOS % 0.1 % (0-4.5); HEMATOCRIT 47.8 % (35.4-49); HEMOGLOBIN 15.7 GM/dL (11.7-16.9); LYMPH % 11.8 % (8-40); MCH 27.4 pg (25.7-33.7); MCHC 32.8 g/dl (32.0-35.9); MEAN CELL VOLUME 83.6 fl (80-96); MEAN PLT VOLUME 9.1 fl (7.5-11.1); MONO % 4.6 % (3.8-10.2); NEUT % 83.2 % (42.8-82.8); PLATELET COUNT 257 10^3/uL (134-434); RBC 5.72 M/mm3 (4.00-5.60); RDW 14.4 % (11.9-15.9); VENOUS PCO2 70.2 mmHg (38-52); WHITE BLOOD COUNT 10.1 K/mm3 (4.0-10.0)
[2022-08-27] MEDS ORDERED: ACETAMINOPHEN INJECTION 100 ML IVPB ONE (08:34)
[2022-08-27 08:41] LABS: CALCIUM 9.4 mg/dL (8.5-10.1)
[2022-08-27 08:42] LABS: ALBUMIN 4.2 g/dl (3.4-5.0); BLOOD UREA NITROGEN 10.2 mg/dL (7-18)
[2022-08-27 08:45] LABS: CREATININE 0.8 mg/dL (0.55-1.3)
[2022-08-27 08:47] LABS: BILIRUBIN,TOTAL 0.3 mg/dL (0.2-1); TOT PROT 8.2 g/dl (6.4-8.2)
[2022-08-27 08:49] LABS: LACTIC ACID 3.3 mmol/L (0.4-2.0)
[2022-08-27 08:50] LABS: PROTHROMBIN TIME (PATIENT) 11.5 SEC (9.7-13.0)
[2022-08-27 08:54] LABS: ACTIVATED PTT 28.8 SECONDS (25.2-36.5)
[2022-08-27] MEDS ORDERED: AZITHROMYCIN IVPB 500 MG in DEXTROSE 5%-WATER - 250 ML IVPB ONE (09:53)
[2022-08-27] MEDS ORDERED: CEFTRIAXONE 1,000 MG in DEXTROSE 5%-WATER - 50 ML IVPB ONE (09:53)
[2022-08-27] MEDS ORDERED: CEFTRIAXONE 1 GM/50 ML BAG ONE (10:35)
[2022-08-27] MEDS ORDERED: AZITHROMYCIN IVPB 500 MG/250 ML BAG IVPB ONE (10:35)
[2022-08-27 13:30] LABS: URINE APPEARANCE CLEAR; URINE BILIRUBIN NEGATIVE (NEGATIVE); URINE COLOR YELLOW; URINE GLUCOSE (UA) 2+ (NEGATIVE); URINE KETONE TRACE (NEGATIVE); URINE LEUK ESTERASE NEGATIVE (NEGATIVE); URINE NITRITE NEGATIVE (NEGATIVE); URINE PROTEIN NEGATIVE (NEGATIVE); URINE UROBILINOGEN 0.2 mg/dL (0.2-1.0)
[2022-08-27] MEDS ORDERED: ACETAMINOPHEN 1000 MG/100 ML BAG IVPB PRN (23:38)
[2022-08-28] MEDS: LACTATED RINGERS SOLUTION 1,000 ML IV SCH (01:26)
[2022-08-28] MEDS: clonazePAM 0.25 MG ODT TABLETS SL SCH ×4 (01:27→21:33)
[2022-08-28] MEDS: PIPERACILLIN/TAZOB 3.375 GM 3.375 GM in DEXTROSE 5%-WATER - 50 ML IVPB SCH ×4 (01:27→09:41)
[2022-08-28] MEDS ORDERED: ACETAMINOPHEN 1000 MG/100 ML BAG IVPB PRN ×2 (07:43→07:50)
[2022-08-28] MEDS: ENOXAPARIN NA (PORCINE) 40 MG/0.4 ML DISP.SYRIN SQ SCH (09:40)
[2022-08-28] MEDS: DOCUSATE SODIUM 100 MG CAPSULE (FP) PO SCH ×2 (09:40→21:33)
[2022-08-28] MEDS: LORazepam 1 MG TABLET PO SCH (09:40)
[2022-08-28] MEDS: LORATADINE 10 MG TABLET PO SCH (09:40)
[2022-08-28] MEDS: CEFTRIAXONE 1 GM in DEXTROSE 5%-WATER - 50 ML IVPB SCH (09:41)
[2022-08-28] MEDS: DOXAZOSIN MESYLATE 4 MG TABLET PO SCH (10:00)
[2022-08-28] MEDS ORDERED: AZITHROMYCIN IVPB 250 MG in DEXTROSE 5%-WATER - 250 ML IVPB SCH (10:00)
[2022-08-28 10:27] LABS: BASO % 0.4 % (0-2.0); EOS % 0.5 % (0-4.5); HEMATOCRIT 39.4 % (35.4-49); LYMPH % 36.1 % (8-40); MCH 27.9 pg (25.7-33.7); MEAN CELL VOLUME 84.5 fl (80-96); MEAN PLT VOLUME 8.9 fl (7.5-11.1); MONO % 9.4 % (3.8-10.2); NEUT % 53.6 % (42.8-82.8); PLATELET COUNT 195 10^3/uL (134-434); RBC 4.66 M/mm3 (4.00-5.60); RDW 14.2 % (11.9-15.9); WHITE BLOOD COUNT 6.1 K/mm3 (4.0-10.0)
[2022-08-28 10:48] LABS: CALCIUM 9.4 mg/dL (8.5-10.1)
[2022-08-28 10:49] LABS: ALBUMIN 3.4 g/dl (3.4-5.0); BLOOD UREA NITROGEN 10.9 mg/dL (7-18)
[2022-08-28 10:52] LABS: CREATININE 0.6 mg/dL (0.55-1.3); PHOSPHOROUS 2.5 mg/dL (2.5-4.9)
[2022-08-28 10:54] LABS: BILIRUBIN,TOTAL 0.4 mg/dL (0.2-1); TOT PROT 6.6 g/dl (6.4-8.2)
[2022-08-28] MEDS: OLANZapine 7.5 MG TABLET PO SCH (22:09)
[2022-08-29] MEDS: LACTATED RINGERS SOLUTION 1,000 ML IV SCH ×2 (04:52→18:34)
[2022-08-29] MEDS: clonazePAM 0.25 MG ODT TABLETS SL SCH ×3 (05:21→22:05)
[2022-08-29 09:03] LABS: BASO % 0.7 % (0-2.0); HEMATOCRIT 42.3 % (35.4-49); HEMOGLOBIN 13.6 GM/dL (11.7-16.9); MCHC 32.2 g/dl (32.0-35.9); MEAN CELL VOLUME 84.1 fl (80-96); MEAN PLT VOLUME 8.9 fl (7.5-11.1); MONO % 13.4 % (3.8-10.2); NEUT % 39.9 % (42.8-82.8); PLATELET COUNT 199 10^3/uL (134-434); RBC 5.03 M/mm3 (4.00-5.60); RDW 13.9 % (11.9-15.9); WHITE BLOOD COUNT 4.2 K/mm3 (4.0-10.0)
[2022-08-29 09:31] LABS: ALBUMIN 3.7 g/dl (3.4-5.0); BLOOD UREA NITROGEN 13.8 mg/dL (7-18); CALCIUM 9.8 mg/dL (8.5-10.1); MAGNESIUM 1.8 mg/dL (1.8-2.4)
[2022-08-29 09:34] LABS: CREATININE 0.6 mg/dL (0.55-1.3)
[2022-08-29 09:36] LABS: BILIRUBIN,TOTAL 0.6 mg/dL (0.2-1); TOT PROT 6.9 g/dl (6.4-8.2)
[2022-08-29] MEDS: LORazepam 1 MG TABLET PO SCH (10:59)
[2022-08-29] MEDS: DOCUSATE SODIUM 100 MG CAPSULE (FP) PO SCH ×2 (10:59→22:06)
[2022-08-29] MEDS: LORATADINE 10 MG TABLET PO SCH (10:59)
[2022-08-29] MEDS: DOXAZOSIN MESYLATE 4 MG TABLET PO SCH (11:00)
[2022-08-29] MEDS: ENOXAPARIN NA (PORCINE) 40 MG/0.4 ML DISP.SYRIN SQ SCH (11:00)
[2022-08-29] MEDS: CEFTRIAXONE 1 GM in DEXTROSE 5%-WATER - 50 ML IVPB SCH (11:01)
[2022-08-29] MEDS ORDERED: levETIRAcetam 500 MG TABLET (FP) PO SCH ×2 (11:15)
[2022-08-29] MEDS ORDERED: levETIRAcetam 500 MG/5 ML ORAL SOLUTION (UNIT-DOSE CUPS) PO SCH ×2 (13:45→22:00)
[2022-08-29] MEDS ORDERED: ACETAMINOPHEN 325 MG TABLET (FP) PO PRN (17:07)
[2022-08-29] MEDS: levETIRAcetam 500 MG/5 ML ORAL SOLUTION (UNIT-DOSE CUPS) PO SCH (22:07)
[2022-08-29] MEDS: OLANZapine 7.5 MG TABLET PO SCH (22:11)
[2022-08-30] MEDS: LACTATED RINGERS SOLUTION 1,000 ML IV SCH (07:07)
[2022-08-30] MEDS: clonazePAM 0.25 MG ODT TABLETS SL SCH ×3 (07:08→22:15)
[2022-08-30] MEDS: DOCUSATE SODIUM 100 MG CAPSULE (FP) PO SCH ×2 (11:02→22:15)
[2022-08-30] MEDS: LORazepam 1 MG TABLET PO SCH (11:02)
[2022-08-30] MEDS: levETIRAcetam 500 MG/5 ML ORAL SOLUTION (UNIT-DOSE CUPS) PO SCH ×2 (11:03→22:16)
[2022-08-30] MEDS: LORATADINE 10 MG TABLET PO SCH (11:03)
[2022-08-30] MEDS: ENOXAPARIN NA (PORCINE) 40 MG/0.4 ML DISP.SYRIN SQ SCH (11:03)
[2022-08-30] MEDS: CEFTRIAXONE 1 GM in DEXTROSE 5%-WATER - 50 ML IVPB SCH (11:06)
[2022-08-30] MEDS: DOXAZOSIN MESYLATE 4 MG TABLET PO SCH (11:06)
[2022-08-30 11:30] LABS: HEMATOCRIT 41.1 % (35.4-49); MCH 26.4 pg (25.7-33.7); MCHC 31.6 g/dl (32.0-35.9); MEAN CELL VOLUME 83.6 fl (80-96); MEAN PLT VOLUME 9.1 fl (7.5-11.1); PLATELET COUNT 205 10^3/uL (134-434); RBC 4.91 M/mm3 (4.00-5.60); RDW 14.2 % (11.9-15.9)
[2022-08-30 11:50] LABS: BLOOD UREA NITROGEN 9.5 mg/dL (7-18); CALCIUM 9.3 mg/dL (8.5-10.1)
[2022-08-30 11:51] LABS: ALBUMIN 3.2 g/dl (3.4-5.0)
[2022-08-30 11:53] LABS: CREATININE 0.5 mg/dL (0.55-1.3)
[2022-08-30 11:55] LABS: BILIRUBIN,TOTAL 0.5 mg/dL (0.2-1); TOT PROT 6.4 g/dl (6.4-8.2)
[2022-08-30 13:19] LABS: ANISOCYTOSIS 0; HELMET CELLS 0; HOWELL-JOLLY BODIES 0; MACROCYTOSIS 0; OVALOCYTE 0; ROULEAU 0; SICKELED CELLS 0; TARGET CELLS 0; TEAR DROP CELLS 0; TOXIC GRANULATION 0
[2022-08-30 16:25] VITALS: BMI 21.2
[2022-08-30] MEDS: OLANZAPINE 2.5 MG, OLANZAPINE 5 MG PO SCH (22:15)
[2022-08-31] MEDS: LACTATED RINGERS SOLUTION 1,000 ML IV SCH ×2 (06:29→12:59)
[2022-08-31] MEDS: clonazePAM 0.25 MG ODT TABLETS SL SCH ×3 (06:30→22:09)
[2022-08-31 10:29] LABS: BASO % 0.7 % (0-2.0); EOS % 3.8 % (0-4.5); HEMATOCRIT 39.9 % (35.4-49); HEMOGLOBIN 13.2 GM/dL (11.7-16.9); LYMPH % 58.9 % (8-40); MCH 27.6 pg (25.7-33.7); MEAN CELL VOLUME 83.7 fl (80-96); MEAN PLT VOLUME 8.9 fl (7.5-11.1); MONO % 9.4 % (3.8-10.2); NEUT % 27.2 % (42.8-82.8); PLATELET COUNT 194 10^3/uL (134-434); RBC 4.76 M/mm3 (4.00-5.60); RDW 14.2 % (11.9-15.9)
[2022-08-31] MEDS: LORazepam 1 MG TABLET PO SCH (10:37)
[2022-08-31] MEDS: levETIRAcetam 500 MG/5 ML ORAL SOLUTION (UNIT-DOSE CUPS) PO SCH ×2 (10:37→22:10)
[2022-08-31] MEDS: DOXAZOSIN MESYLATE 4 MG TABLET PO SCH (10:37)
[2022-08-31] MEDS: LORATADINE 10 MG TABLET PO SCH (10:37)
[2022-08-31] MEDS: DOCUSATE SODIUM 100 MG CAPSULE (FP) PO SCH ×2 (10:37→22:10)
[2022-08-31] MEDS: CEFTRIAXONE 1 GM in DEXTROSE 5%-WATER - 50 ML IVPB SCH (10:41)
[2022-08-31 10:50] LABS: ALBUMIN 3.2 g/dl (3.4-5.0); CALCIUM 9.2 mg/dL (8.5-10.1)
[2022-08-31] MEDS: ENOXAPARIN NA (PORCINE) 40 MG/0.4 ML DISP.SYRIN SQ SCH (10:50)
[2022-08-31 10:51] LABS: MAGNESIUM 1.8 mg/dL (1.8-2.4)
[2022-08-31 10:54] LABS: CREATININE 0.6 mg/dL (0.55-1.3)
[2022-08-31 10:55] LABS: BILIRUBIN,TOTAL 0.4 mg/dL (0.2-1); TOT PROT 6.3 g/dl (6.4-8.2)
[2022-08-31] MEDS ORDERED: oxyCODONE HCL 5 MG TABLET PO ONE (13:45)
[2022-08-31] MEDS: OLANZAPINE 2.5 MG, OLANZAPINE 5 MG PO SCH (22:10)
[2022-09-01] MEDS: LACTATED RINGERS SOLUTION 1,000 ML IV SCH (00:23)
[2022-09-01] MEDS: clonazePAM 0.25 MG ODT TABLETS SL SCH (05:31)
[2022-09-01] MEDS: levETIRAcetam 500 MG/5 ML ORAL SOLUTION (UNIT-DOSE CUPS) PO SCH (10:37)
[2022-09-01] MEDS: ENOXAPARIN NA (PORCINE) 40 MG/0.4 ML DISP.SYRIN SQ SCH (10:38)
[2022-09-01] MEDS: LORazepam 1 MG TABLET PO SCH (10:38)
[2022-09-01] MEDS: DOXAZOSIN MESYLATE 4 MG TABLET PO SCH (10:38)
[2022-09-01] MEDS: LORATADINE 10 MG TABLET PO SCH (10:38)
[2022-09-01] MEDS: DOCUSATE SODIUM 100 MG CAPSULE (FP) PO SCH (10:38)
[2022-09-01 10:41] VITALS: BP 102/50; PULSE 61; RESP 18; TEMP 97.6
== END 2022-09-01 12:30 | disposition home or self-care (01) | DRG 137 ==
LOC: EDBD → JER 07:27 → JERBED 09:53 → MERGE 09:53 → EDBD 09:53 → J8W 11:59
PROVIDERS: ADMIT Internal Medicine; ATTEND Nurse Practitioner Family
DX: J69.0 Pneumonitis due to inhalation of food and vomit (principal); H47.619 Cortical blindness, unspecified side of brain; F73 Profound intellectual disabilities; R13.10 Dysphagia, unspecified; G40.909 Epilepsy, unspecified, not intractable, without status epilepticus; Q66.89 Other specified congenital deformities of feet; R62.59 Other lack of expected normal physiological development in childhood; R09.02 Hypoxemia; H26.9 Unspecified cataract
CPT/HCPCS: 0241U-QW; 36415; 70450-TC; 71045-TC-FY; 80053; 80177; 81003; 82550; 82553; 82803; 82962; 83605; 83735; 84100; 84484; 85025; 85610; 85730; 87040; 87086; 87899; 93005; 93010; 99285-25; C9803-CS; U0003; U0005

== ENCOUNTER 2022-10-19 20:18 | Emergency (ER) | payer OTHER ==
[2022-10-19 20:33] VITALS: BP 00/00; PULSE 0; RESP 0; BMI 23.4
== END 2022-10-19 23:00 | disposition expired ==
LOC: JER 20:18
PROC: 5A12012 Performance of Cardiac Output, Single, Manual (ICD-10-PCS; principal; 2022-10-19)
DX: I46.9 Cardiac arrest, cause unspecified (principal)
CPT/HCPCS: 82962; 99283-25